=== PATIENT | female | born 1975 | race Caucasian/White ===

== ENCOUNTER 2020-04-07 10:22 | Outpatient (REF) | payer MEDICARE, MEDICAID, SELFPAY ==
[2020-04-07 12:16] LABS: Alanine Aminotransferase 14 U/L (0-31); Alkaline Phosphatase 103 U/L (39-117); Aspartate Amino Transferase 19 U/L (5-31); Bilirubin Direct < 0.2 mg/dL (0.0-0.5); Bilirubin Total 0.4 mg/dL (0.0-1.0); Cholesterol 191 mg/dL; HDL Cholesterol 51 mg/dL; LDL Cholesterol Calculated 124 mg/dl; Triglycerides 84 mg/dL
== END 2020-04-07 10:23 | disposition home or self-care (01) ==
LOC: HO.HMGCLDS 10:22
PROVIDERS: PCP Internal Medicine; Visit Provider Internal Medicine
DX: E78.9 Disorder of lipoprotein metabolism, unspecified (principal)
CPT/HCPCS: 36415; 80061; 80076

== ENCOUNTER 2020-12-02 10:09 | Outpatient (REF) | payer MEDICARE, MEDICAID, SELFPAY ==
[2020-12-02 12:03] LABS: Alanine Aminotransferase 17 U/L (0-31); Albumin Level 4.2 g/dL (3.5-5.0); Alkaline Phosphatase 100 U/L (39-117); Aspartate Amino Transferase 24 U/L (5-31); Bilirubin Direct < 0.2 mg/dL (0.0-0.5); Bilirubin Total 0.4 mg/dL (0.0-1.0); Cholesterol 230 mg/dL; HDL Cholesterol 53 mg/dL; LDL Cholesterol Calculated 145 mg/dl; Total Protein 7.2 g/dL (6.5-8.0); Triglycerides 164 mg/dL
== END 2020-12-02 10:10 | disposition home or self-care (01) ==
LOC: HO.HMGCLDS 10:09
PROVIDERS: PCP Internal Medicine; Visit Provider Internal Medicine
DX: E78.9 Disorder of lipoprotein metabolism, unspecified (principal); E66.09 Other obesity due to excess calories
CPT/HCPCS: 36415; 80061; 80076

== ENCOUNTER 2021-06-07 10:23 | Outpatient (REF) | payer MEDICARE, MEDICAID, SELFPAY ==
[2021-06-07 11:26] LABS: MANUAL DIFF FLAG NO
[2021-06-07 11:59] LABS: Basophils Percent Auto 0.2 % (0-2); Eosinophils Absolute Auto 0.2 X10*3/uL (0.0-0.4); Eosinophils Percent Auto 5.1 % (0-4); Hematocrit 38.1 % (37.0-47.0); Hemoglobin 12.3 g/dl (12.0-16.0); Imm Gran Abs Auto 0.01 X10*3/uL (0.00-0.03); Imm Gran Pct Auto 0.2 % (0.0-0.4); Lymphocytes Absolute Auto 1.5 X10*3/uL (1.2-4.9); Mean Corpuscular HGB Conc 32.3 g/dl (31.0-35.0); Mean Corpuscular Hemoglobin 33.2 pg (27.0-33.0); Mean Corpuscular Volume 102.7 fL (80.0-98.0); Mean Platelet Volume 9.2 fL (9.4-12.3); Monocytes Absolute Auto 0.2 X10*3/uL (0.1-1.2); Monocytes Percent Auto 5.1 % (2-11); Neutrophils Absolute Auto 2.4 x10*3/uL (2.0-8.3); Neutrophils Percent Auto 54.4 % (45-73); Platelet Count 168 X10*3/uL (160-400); Red Blood Count 3.71 X10*6/uL (4.20-5.50); Red Cell Distribution Width 13.3 % (11.0-16.0); White Blood Count 4.3 X10*3/uL (4.8-10.8)
[2021-06-07 12:04] LABS: Alanine Aminotransferase 14 U/L (0-31); Albumin Level 3.9 g/dL (3.5-5.0); Alkaline Phosphatase 95 U/L (39-117); Anion Gap 12 (12-20); Aspartate Amino Transferase 19 U/L (5-31); Bilirubin Total 0.6 mg/dL (0.0-1.0); Blood Urea Nitrogen 16 mg/dL (9-16); Carbon Dioxide 29 mmol/L (22-29); Chloride 103 mmol/L (96-108); Cholesterol 205 mg/dL; Estimated Glomerular Filt Rate > 60; Glucose Fasting 111 mg/dL (60-99); HDL Cholesterol 56 mg/dL; LDL Cholesterol Calculated 133 mg/dl; Potassium 4.1 mmol/L (3.3-5.1); Sodium 140 mmol/L (135-145); Total Protein 6.9 g/dL (6.5-8.0); Triglycerides 84 mg/dL
[2021-06-07 12:10] LABS: TSH reflex Free T4 1.02 uIU/mL (0.32-4.0)
== END 2021-06-07 10:24 | disposition home or self-care (01) ==
LOC: HO.HMGCLDS 10:23
PROVIDERS: Visit Provider Internal Medicine
DX: Z00.01 Encounter for general adult medical examination with abnormal findings (principal); E66.09 Other obesity due to excess calories; E78.9 Disorder of lipoprotein metabolism, unspecified; F81.9 Developmental disorder of scholastic skills, unspecified; R41.840 Attention and concentration deficit
CPT/HCPCS: 36415; 80053; 80061; 84443; 85025

== ENCOUNTER 2021-08-11 13:13 | Outpatient (REF) | payer MEDICARE, MEDICAID, SELFPAY ==
--- NOTE | ~2021-08-11 | MM_ITS ---
EXAMINATION: MM SCREENING DIGITAL BREAST TOMOSYNTHESIS, BILATERAL CLINICAL INFORMATION: Screening. Asymptomatic. Age 46. No prior breast imaging. No known family history breast cancer. The lifetime risk of breast cancer based on the Tyrer-Cuzick Model is 11%. COMPARISON: None (current study represents initial baseline exam). TECHNIQUE: Digital breast tomosynthesis is performed in both the craniocaudal and mediolateral oblique views along with computer-aided detection (CAD). Synthesized 2D images are generated from the tomosynthesis. Additional left CC and left MLO views are provided. FINDINGS: The breasts are heterogeneously dense, which may obscure small masses (ACR BI-RADS breast composition Category c). There is no significant mass or architectural abnormality. No abnormal calcifications. The axilla and skin contours are unremarkable. MM/MM tomosynthesis screening BI IMPRESSION: No mammographic evidence of malignancy. ASSESSMENT: BI-RADS 1: Negative RECOMMENDATION: Routine annual mammography screening. This patient's information was entered into a reminder system with a target due date for their next mammogram.
== END 2021-08-11 13:14 | disposition home or self-care (01) ==
LOC: HO.MAMMO 13:13
PROVIDERS: PCP Internal Medicine; Visit Provider Internal Medicine
DX: Z12.31 Encounter for screening mammogram for malignant neoplasm of breast (principal)
CPT/HCPCS: 77063; 77067

== ENCOUNTER → 2022-04-20 10:11 | Outpatient (BNVA) | payer MEDICARE, MEDICAID, SELFPAY | PROVIDERS: PCP Internal Medicine; Visit Provider Advanced Practice Midwife ==

== ENCOUNTER 2022-06-24 19:51 | Emergency (ER) | payer MEDICARE, MEDICAID, SELFPAY ==
--- NOTE | 2022-06-24 | ECG_ITS ---
Test Reason : SEIZURE Blood Pressure : / mmHG Vent. Rate : 076 BPM Atrial Rate : 076 BPM P-R Int : 120 ms QRS Dur : 084 ms QT Int : 432 ms P-R-T Axes : 045 062 057 degrees QTc Int : 486 ms Normal sinus rhythm T wave abnormality, consider anterior ischemia Abnormal ECG When compared with ECG of 24-APR-2016 15:00, T wave inversion more evident in Anterior leads Referred By: Generic ED Physician Electronically Signed By:Soren Matthew
--- NOTE | ~2022-06-24 | CT_ITS ---
EXAMINATION: CT HEAD WITHOUT CONTRAST CT CERVICAL SPINE WITHOUT CONTRAST CLINICAL INFORMATION: Trauma. Head injury. COMPARISON: None available. TECHNIQUE: Contiguous axial imaging was performed from the skull base to vertex without intravenous administration of contrast. Contiguous axial imaging was performed from the upper chest through the skull base without intravenous administration of contrast. Coronal and sagittal reformats were obtained at the acquisition workstation. This CT examination was performed using dose optimization techniques as appropriate, variously including the following: *Automated exposure control. *Adjustment of mA and/or kV according to patient size (this includes techniques or standardized protocols for targeted exams where dose is matched to indication/reason for exam; i.e. extremities or head). *Use of iterative reconstruction technique. DLP: 938 mGy-cm FINDINGS: Head: Moderately motion degraded exam. There is no evidence of acute intracranial hemorrhage or edematous territorial infarction. Monique-white matter differentiation is preserved. There is no abnormal attenuation within the brain parenchyma. The ventricles are normal in morphology and size. No evidence for obstructive hydrocephalus. No abnormal mass effect or midline shift. No extra-axial fluid collections. No acute soft tissue or osseous abnormalities. The mastoid air cells and visualized paranasal sinuses are clear. Cervical Spine: Moderately motion degraded exam. The atlantooccipital and atlantoaxial articulations remain well aligned. Reversal the normal cervical lordosis centered on C5-C6. Otherwise, there is anatomic alignment of the vertebral bodies and posterior elements. No evidence of acute fracture or subluxation. The vertebral body heights are maintained. Moderate degenerative disc disease at C6-C7 and C7-T1. Facet and uncovertebral joint arthropathy leads to osseous encroachment on the neural foramina from C4-T1. There is no prevertebral soft tissue swelling. The thyroid gland and remaining cervical soft tissues are within normal limits. The lung apices demonstrate no abnormalities. CT/CT cervical spine wo IV con IMPRESSION: 1. No evidence of acute intracranial hemorrhage or edematous territorial infarction. 2. No evidence of acute fracture or traumatic subluxation of the cervical spine. Moderate multilevel degenerative spondyloarthropathy of the cervical spine.
[2022-06-24 20:02] VITALS: BP 104/69; BP 110/72; PULSE 104; PULSE 88; RESP 16; O2SAT 98; BMI 35.6
--- NOTE | 2022-06-24 20:11 | PC.NURSE ---
Pt presents to ER via EMS. Pt was found at a advent dance after having a full body seizure for 5-7 minutes. Pt does not have a history of seizures. Mother at bedside stated pt may have hit her head, and pt did have an episode of vomiting following the seizure. EMS placed pt in a c-collar and placed an 18g IV in the left AC. Pt is A&Ox4, GCS 15. Pt does have an intellectual disability that causes some confusion and repetition of questions and phrases. Parents are at the bedside. Pt has been put under seizure precautions, seizure pads have been put on the bed. Pt bloodwork is being drawn at this time. Pt waiting for ED provider at this time.
[2022-06-24 20:28] VITALS: BP 104/69; PULSE 104; RESP 16; O2SAT 98
[2022-06-24 20:40] LABS: MANUAL DIFF FLAG NO
[2022-06-24 20:41] LABS: Basophils Percent Auto 0.5 % (0-2); Eosinophils Absolute Auto 0.5 X10*3/uL (0.0-0.4); Eosinophils Percent Auto 8.2 % (0-4); Hematocrit 33.1 % (37.0-47.0); Hemoglobin 10.4 g/dl (12.0-16.0); Imm Gran Abs Auto 0.05 X10*3/uL (0.00-0.03); Imm Gran Pct Auto 0.8 % (0.0-0.4); Lymphocytes Absolute Auto 2.2 X10*3/uL (1.2-4.9); Lymphocytes Percent Auto 34.8 % (20-40); Mean Corpuscular HGB Conc 31.4 g/dl (31.0-35.0); Mean Corpuscular Hemoglobin 30.9 pg (27.0-33.0); Mean Corpuscular Volume 98.2 fL (80.0-98.0); Mean Platelet Volume 8.6 fL (9.4-12.3); Monocytes Absolute Auto 0.4 X10*3/uL (0.1-1.2); Monocytes Percent Auto 5.6 % (2-11); Neutrophils Absolute Auto 3.1 x10*3/uL (2.0-8.3); Neutrophils Percent Auto 50.1 % (45-73); Platelet Count 210 X10*3/uL (160-400); Red Blood Count 3.37 X10*6/uL (4.20-5.50); Red Cell Distribution Width 14.9 % (11.0-16.0); White Blood Count 6.2 X10*3/uL (4.8-10.8)
[2022-06-24 20:55] LABS: Glucose, Whole Blood 107 mg/dL (60-115)
[2022-06-24 20:56] LABS: Alanine Aminotransferase 15 U/L (0-31); Albumin Level 3.6 g/dL (3.5-5.0); Alkaline Phosphatase 65 U/L (39-117); Anion Gap 12 (12-20); Aspartate Amino Transferase 21 U/L (5-31); Bilirubin Total 0.2 mg/dL (0.0-1.0); Blood Urea Nitrogen 17 mg/dL (9-16); Calcium 8.6 mg/dL (8.4-10.2); Carbon Dioxide 26 mmol/L (22-29); Chloride 107 mmol/L (96-108); Creatinine Clr Calc Pharmacy 100.5; Estimated Glomerular Filt Rate > 60; Glucose Random 121 mg/dL (60-115); Potassium 3.8 mmol/L (3.3-5.1); Sodium 141 mmol/L (135-145); Total Protein 6.6 g/dL (6.5-8.0)
--- NOTE | 2022-06-24 21:18 | PC.NURSE ---
Assisted pt with the bedpan. Urine was collected and sent. Pt had a solid bowel movement. Pt has been able to roll and sit up in the bed on her own.
[2022-06-24 21:25] LABS: Appearance Urine Clear; Color Urine Yellow; Glucose Urine UA Negative (Negative); Leukocyte Esterase Urine Moderate (2+) (Negative); Nitrite Urine Negative (Negative); PH 6.5 (5.0-9.0); UMIC TRIGGER UACC YES; Urine Blood Negative (Negative); Urine Ketones Trace mg/dL (Negative); Urine Protein 30 (1+) mg/dL (Neg-Trace)
--- NOTE | 2022-06-24 21:29 | ED.SEIZURE ---
HPI - Seizure General Chief Complaint: Seizure Stated Complaint: seizure Time Seen by Provider: 06/24/22 21:00 History of Present Illness HPI Narrative: Patient 47-year-old female with a hypertension pre diabetes intellectual disability. Presented today patient was at a function had a full-blown shaking of the upper and lower extremity patient I will back lasted for less than 5 minute subsequently patient was very lethargic. Gradually over few minutes patient mental status improved. Sent to the ED for further evaluation. Baseline patient does not drive. There is been no recreational drugs. Has no significant past medical history. No fever no chills. No focal weakness. Seizure History: No Place: [facility] Related Data Home Medications Medication Instructions Recorded Confirmed fluoxetine 20 mg capsule 20 mg PO DAILY 03/25/20 11/24/21 lorazepam 0.5 mg tablet 0.5 mg PO TID PRN 03/25/20 11/24/21 quetiapine 100 mg tablet mg PO Q OTHER DAY PRN 03/25/20 11/24/21 Previous Rx's Medication Instructions Recorded simvastatin 20 mg tablet 20 mg PO BEDTIME #90 tabs 12/24/21 sulfamethoxazole 800 1 tab PO BID UTI #6 tabs 06/24/22 mg-trimethoprim 160 mg tablet (Bactrim DS) Allergies Allergy/AdvReac Type Severity Reaction Status Date / Time No Known Allergies Allergy Verified 04/20/22 10:20 Review of Systems Review of Systems: No chest pain or shortness of breath no diaphoresis Yes all other systems are reviewed and are negative PMFSH Past Medical History Medical History High cholesterol History of anxiety Intellectual disability Surgical History History of total hysterectomy Family History Family History Father History of hip replacement Mother Heart attack Sister No problems noted. Social History Social History Household Members Other:: father Housing: House Alcohol intake: never Patient Tobacco Use Status: Never used Tobacco Smoked in Last 30 Days: No e-Cigarette/Vaping Use: Never Used Use of substances other than those prescribed or required for medical reasons: No Advance Directives: No Advance Directives Information Provided: Yes Patient : No Current occupational status: disabled Cognitive needs: Yes Hearing needs: No Vision needs: No Physical Exam Vital Signs: Vital Signs: Last Vital Signs Temp 98.4 F 06/24/22 21:58 Pulse 84 06/24/22 21:58 Resp 16 06/24/22 21:58 BP 119/56 L 06/24/22 21:58 Pulse Ox 98 06/24/22 21:58 O2 Del Method Room Air 06/24/22 21:58 BMI result Body Mass Index 35.6 Appearance: Alert. Oriented X3. No acute distress. Eyes: Pupils equal, round and reactive to light. ENT: Pharynx normal. Neck: Normal inspection. Neck supple. No lymph nodes noted. No crepitus CVS: Normal heart rate and rhythm. Pulses normal. Normal S1 and S2 Respiratory: No respiratory distress. Breath sounds normal. No Wheezing. No rales Abdomen: Soft and nontender. No rigidity. No distention. good BS x4 Skin: Skin warm and dry. Normal skin color. Normal skin turgor. Extremities: No lower extremity edema. Neurovascular intact to all extremities. No Lacerations. No Rash Neuro: Oriented X 3. No motor deficit. No sensory deficit. Moving all extermities. No slurred speech Medical Decision Making Medical Decision Making [facility] Narrative: Patient presents today with having new onset seizure. CT scan of the head and C-spine were both grossly negative for any acute evidence of fracture. No malalignment. No bleed. No mass. My interpretation of patient's EKG shows a sinus rhythm heart rate was 75 NH QRS QTC within normal limits in the anterior leads there were T-wave inversions noted, these findings were old. Her test was negative. Her electrolytes are unremarkable. Patient's urine showed 2+ local site esterase with greater than 50 wbc's. Question UTI. Will go ahead and start patient on antibiotics. Close follow-up on an outpatient basis. Seizure precautions. Elected not to start medication as patient had a first-time seizure home. Patient to follow-up with Neurology on an outpatient basis. Differential Diagnosis Differential Diagnoses: The differential diagnosis associated with the presentation includes Seizure, UTI, intracranial bleed, intracranial mass, fracture Admission/Observation Consideration of admission/observation: Escalation of care including admission/observation considered Lab Data [facility] Lab Attestation statement: I reviewed the patient's lab results. 06/24/22 20:33 06/24/22 11:55 Labs: Lab Results 06/24/22 06/24/22 06/24/22 Range/Units 11:55 20:33 20:47 WBC 6.2 (4.8-10.8) X10*3/uL RBC 3.37 L (4.20-5.50) X10*6/uL Hgb 10.4 L (12.0-16.0) g/dl Hct 33.1 L (37.0-47.0) % MCV 98.2 H (80.0-98.0) fL MCH 30.9 (27.0-33.0) pg MCHC 31.4 (31.0-35.0) g/dl RDW 14.9 (11.0-16.0) % Plt Count 210 (160-400) X10*3/uL MPV 8.6 L (9.4-12.3) fL Immature Gran % (Auto) 0.8 H (0.0-0.4) % Neut % (Auto) 50.1 (45-73) % Lymph % (Auto) 34.8 (20-40) % [place] % (Auto) 5.6 (2-11) % Eos % (Auto) 8.2 H (0-4) % Baso % (Auto) 0.5 (0-2) % Lymph # (Auto) 2.2 (1.2-4.9) X10*3/uL [place] # (Auto) 0.4 (0.1-1.2) X10*3/uL Eos # (Auto) 0.5 H (0.0-0.4) X10*3/uL Baso # (Auto) 0.0 (0.0-0.2) X10*3/uL Abs Immat Gran (auto) 0.05 H (0.00-0.03) X10*3/uL Absolute Neuts (auto) 3.1 (2.0-8.3) x10*3/uL Absolute Nucleated RBC 0.000 (0.0-0.012) X10*3/uL Nucleated RBC % (auto) 0.0 (0.0-0.2) /100WBC Sodium 141 (135-145) mmol/L Potassium 3.8 (3.3-5.1) mmol/L Chloride 107 (96-108) mmol/L Carbon Dioxide 26 (22-29) mmol/L Anion Gap 12 (12-20) BUN 17 H (9-16) mg/dL Creatinine 0.77 (0.5-1.4) mg/dL Estim Creat Clear Calc 100.5 Estimated GFR > 60 POC Glucose 107 (60-115) mg/dL Random Glucose 121 H (60-115) mg/dL Calcium 8.6 (8.4-10.2) mg/dL Total Bilirubin 0.2 (0.0-1.0) mg/dL AST 21 (5-31) U/L ALT 15 (0-31) U/L Alkaline Phosphatase 65 (39-117) U/L Total Protein 6.6 (6.5-8.0) g/dL Albumin 3.6 (3.5-5.0) g/dL Beta HCG, Quant Cancelled Urine Color Urine Appearance Urine pH (5.0-9.0) Ur Specific [place] (1.005-1.025) Urine Protein (Neg-Trace) mg/dL Urine Glucose (UA) (Negative) mg/dL Urine Ketones (Negative) mg/dL Urine Blood (Negative) Urine Nitrite (Negative) Ur Leukocyte Esterase (Negative) Urine RBC (0-2) /HPF Urine WBC (0-5) /HPF Ur Squamous Epith Cells (0-2) /HPF Urine Bacteria (None Seen) Hyaline Casts (0-2) /LPF Urine Test (NEGATIVE) 06/24/22 06/24/22 Range/Units 21:06 21:06 WBC (4.8-10.8) X10*3/uL RBC (4.20-5.50) X10*6/uL Hgb (12.0-16.0) g/dl Hct (37.0-47.0) % MCV (80.0-98.0) fL MCH (27.0-33.0) pg MCHC (31.0-35.0) g/dl RDW (11.0-16.0) % Plt Count (160-400) X10*3/uL MPV (9.4-12.3) fL Immature Gran % (Auto) (0.0-0.4) % Neut % (Auto) (45-73) % Lymph % (Auto) (20-40) % [place] % (Auto) (2-11) % Eos % (Auto) (0-4) % Baso % (Auto) (0-2) % Lymph # (Auto) (1.2-4.9) X10*3/uL [place] # (Auto) (0.1-1.2) X10*3/uL Eos # (Auto) (0.0-0.4) X10*3/uL Baso # (Auto) (0.0-0.2) X10*3/uL Abs Immat Gran (auto) (0.00-0.03) X10*3/uL Absolute Neuts (auto) (2.0-8.3) x10*3/uL Absolute Nucleated RBC (0.0-0.012) X10*3/uL Nucleated RBC % (auto) (0.0-0.2) /100WBC Sodium (135-145) mmol/L Potassium (3.3-5.1) mmol/L Chloride (96-108) mmol/L Carbon Dioxide (22-29) mmol/L Anion Gap (12-20) BUN (9-16) mg/dL Creatinine (0.5-1.4) mg/dL Estim Creat Clear Calc Estimated GFR POC Glucose (60-115) mg/dL Random Glucose (60-115) mg/dL Calcium (8.4-10.2) mg/dL Total Bilirubin (0.0-1.0) mg/dL AST (5-31) U/L ALT (0-31) U/L Alkaline Phosphatase (39-117) U/L Total Protein (6.5-8.0) g/dL Albumin (3.5-5.0) g/dL Beta HCG, Quant Urine Color Yellow Urine Appearance Clear Urine pH 6.5 (5.0-9.0) Ur Specific [place] 1.020 (1.005-1.025) Urine Protein 30 (1+) H (Neg-Trace) mg/dL Urine Glucose (UA) Negative (Negative) mg/dL Urine Ketones Trace (Negative) mg/dL Urine Blood Negative (Negative) Urine Nitrite Negative (Negative) Ur Leukocyte Esterase Moderate (2+) H (Negative) Urine RBC 0-2 (0-2) /HPF Urine WBC >50 H (0-5) /HPF Ur Squamous Epith Cells 3-5 (0-2) /HPF Urine Bacteria None Seen (None Seen) Hyaline Casts 0-2 (0-2) /LPF Urine Test NEGATIVE (NEGATIVE) Independent Interpretation I performed an independent interpretation of an: EKG Interpretation: Sinus rhythm heart rate was 75 NH QRS QT within normal limits there is T-wave inversions over the anterior septal leads. Radiology Impression Discussion of test interpretation with radiology: I have reviewed the radiologist's reading. Independent Historian Clinical information obtained from an independent historian. History obtained from or confirmed by: Parent Discharge Plan Discharge Clinical Impression: Epileptic seizure, Urinary tract infection Patient Disposition: Home, Self-Care Instructions: New-Onset Seizure in Adults (ED) Additional Instructions: No swimming. No activities that will put you in danger if he have a seizure that time. Prescriptions: New sulfamethoxazole-trimethoprim [Bactrim DS] 800-160 mg tablet 1 tab PO BID Qty: 6 0RF No Action simvastatin 20 mg tablet 20 mg PO BEDTIME Qty: 90 0RF quetiapine 100 mg tablet PO Q OTHER DAY PRN fluoxetine 20 mg capsule 20 mg PO DAILY lorazepam 0.5 mg tablet 0.5 mg PO TID PRN Referrals: Clary Schroeder MD [Physician] - 06/27/22 Paige Gonsalez MD [Primary Care Provider] -
[2022-06-24 21:30] LABS: Bacteria Urine None Seen (None Seen); Hyaline Casts Urine 0-2 /LPF (0-2); RBC Urine 0-2 /HPF (0-2); UACC Culture Trigger YES; WBC Urine >50 /HPF (0-5)
--- NOTE | 2022-06-24 21:40 | PC.NURSE ---
Assisted pt with bedpan. Pt had a solid bowel movement.
[2022-06-24 21:46] LABS: Urine Pregnancy NEGATIVE (NEGATIVE)
[2022-06-24 21:47] LABS: UPreg QC Valid YES
--- NOTE | 2022-06-24 21:49 | PC.NURSE ---
Assisted pt with bedpan, she had one formed bowel movement. MD aware of frequent bowel movements.
[2022-06-24 21:58] VITALS: BP 119/56; PULSE 84; RESP 16; TEMP 36.9; O2SAT 98
--- NOTE | 2022-06-24 22:08 | MHC.EDTECH ---
PATIENT WAS ASSISTED UNTO BED GARCIA ,PATIENT HAD LARGE BOWEL MOVEMENT ,CARE GIVEN ,PATIENT FATHER AT BEDSIDE .
[2022-06-24 23:41] VITALS: BP 116/58; PULSE 77; RESP 15; TEMP 37.1; O2SAT 99
--- NOTE | 2022-06-24 23:42 | MHC.EDTECH ---
PATIENT VITALS SIGN TAKEN ,MD DURBIN TOOK OFF PATIENT COLLAR ,PATIENT WATCHING TELEVISION .
--- NOTE | 2022-06-24 23:59 | MHC.EDTECH ---
PATIENT WAS ASSISTED TO GET DRESS ,PATIENT AUNT IS HERE TO TAKE PATIENT HOME .
--- NOTE | 2022-06-25 00:15 | PC.NURSE ---
Reviewed discharge instructions with pt and family, pt verbalized understanding notified HTEAL Lazo.
[2022-06-25] MEDS: Acetaminophen 325 MG TABLET 650 MG PO (00:48)
[2022-06-25] MEDS: Sulfamethox/Trimeth 800/160 TABLET 1 TAB PO (00:48)
== END 2022-06-25 00:21 | disposition home or self-care (01) ==
PROVIDERS: Emergency Provider Emergency Medicine Emergency Medical Services; PCP Internal Medicine
DX: G40.909 Epilepsy, unspecified, not intractable, without status epilepticus (principal); N39.0 Urinary tract infection, site not specified; R51.9 Headache, unspecified; M54.2 Cervicalgia; Z79.899 Other long term (current) drug therapy
CPT/HCPCS: 36415; 70450; 72125; 80053; 81001; 81025; 82947; 85025; 87086; 87147; 93005; 99284; 99285

== ENCOUNTER 2022-08-12 11:48 | Outpatient (REF) | payer MEDICARE, MEDICAID, SELFPAY ==
[2022-08-17 11:48] LABS: Vitamin D 25-OH, D2 <4 ng/mL; Vitamin D 25-OH, D3 27 ng/mL; Vitamin D 25-OH, Total 27 ng/mL (30-100)
== END 2022-08-12 11:49 | disposition home or self-care (01) ==
LOC: HO.HMGCX 11:48
PROVIDERS: PCP Internal Medicine; Visit Provider Internal Medicine
DX: E78.9 Disorder of lipoprotein metabolism, unspecified (principal); D64.9 Anemia, unspecified; K59.00 Constipation, unspecified; M25.562 Pain in left knee
CPT/HCPCS: 36415; 73564; 80053; 82306; 82607; 82728; 82746; 83540; 85025

== ENCOUNTER 2022-08-15 13:14 | Outpatient (REF) | payer MEDICARE, MEDICAID, SELFPAY ==
--- NOTE | ~2022-08-15 | MM_ITS ---
EXAMINATION: MM SCREENING DIGITAL BREAST TOMOSYNTHESIS, BILATERAL CLINICAL INFORMATION: Screening. Asymptomatic. The lifetime risk of breast cancer based on the Tyrer-Cuzick Model is 11%. COMPARISON: Mammography: This study is compared with prior exams dating back to 2021. TECHNIQUE: Digital breast tomosynthesis is performed in both the craniocaudal and mediolateral oblique views along with computer-aided detection (CAD). Synthesized 2D images are generated from the tomosynthesis. FINDINGS: The breasts are heterogeneously dense, which may obscure small masses (ACR BI-RADS breast composition Category c). There is an asymmetry in the deep third left breast at the lower outer quadrant. Additional mammographic imaging is advised. This should include spot compression in the CC projection, X CCL and full lateral 2-D and kezia synthesis imaging. In the right breast, there are no significant masses, abnormal calcifications, or other abnormalities. MM/MM tomosynthesis screening BI IMPRESSION: Asymmetry of the left breast warrants additional mammographic imaging. No mammographic signs of malignancy right breast. ASSESSMENT: BI-RADS BI-RADS 0 - Incomplete: Needs additional Imaging. RECOMMENDATION: 1. Additional views of the left breast 2. Targeted ultrasound if warranted after review of the additional views. 3. Radiology department staff will contact the patient for additional imaging. Additional Imaging required This examination should not preclude the clinical evaluation of a suspicious palpable abnormality. This patient's information was entered into a reminder system with a target due date for their next mammogram.
== END 2022-08-15 13:15 | disposition home or self-care (01) ==
LOC: HO.MAMMO 13:14
PROVIDERS: PCP Internal Medicine; Visit Provider Internal Medicine
DX: Z12.31 Encounter for screening mammogram for malignant neoplasm of breast (principal)
CPT/HCPCS: 77063; 77067

== ENCOUNTER → 2022-08-15 13:30 | Outpatient (BNV) | payer MEDICARE, MEDICAID, SELFPAY | PROVIDERS: PCP Internal Medicine; Visit Provider Radiology Diagnostic Radiology | DX: Z12.31 Encounter for screening mammogram for malignant neoplasm of breast (principal) | CPT/HCPCS: 77063; 77067 ==

== ENCOUNTER 2022-09-21 08:12 | Outpatient (REF) | payer MEDICARE, MEDICAID, SELFPAY ==
--- NOTE | ~2022-09-21 | XR_ITS ---
EXAMINATION: XR KNEE AP STANDING X-ray left knee CLINICAL INFORMATION: Knee pain COMPARISON: X-ray 08/22/2022 TECHNIQUE: AP bilateral standing view of the knees was obtained. Left knee sunrise one view. FINDINGS: Left knee: Anatomic alignment. Joint space is maintained. No evidence of acute fracture or dislocation. No abnormal soft tissue calcification. Right knee: Anatomic alignment. Medial and lateral compartment joint space is maintained. XR/XR knee standing BI IMPRESSION: Left knee: No radiographic evidence of acute osseous abnormality.
--- NOTE | ~2022-09-21 | XR_ITS ---
EXAMINATION: XR KNEE AP STANDING X-ray left knee CLINICAL INFORMATION: Knee pain COMPARISON: X-ray 08/22/2022 TECHNIQUE: AP bilateral standing view of the knees was obtained. Left knee sunrise one view. FINDINGS: Left knee: Anatomic alignment. Joint space is maintained. No evidence of acute fracture or dislocation. No abnormal soft tissue calcification. Right knee: Anatomic alignment. Medial and lateral compartment joint space is maintained. XR/XR knee LT 1V IMPRESSION: Left knee: No radiographic evidence of acute osseous abnormality.
== END 2022-09-21 08:13 | disposition home or self-care (01) ==
LOC: HO.HOSX 08:12
PROVIDERS: Visit Provider Physician Assistant
DX: Z13.89 Encounter for screening for other disorder (principal)
CPT/HCPCS: 73560; 73565

== ENCOUNTER 2022-09-21 10:51 | Outpatient (AMB) | payer MEDICARE, MEDICAID, SELFPAY ==
[2022-09-21 11:08] VITALS: BMI 33.6
--- NOTE | 2022-09-21 11:08 | A.OFFVIS_ITS ---
Intake Vital Signs 09/21/22 11:08 Height 5 ft 4 in Weight 196 lb BMI 33.6 Intake Visit Reasons: [employer]- Left knee pain Intake Note: Stephy a 47 year old female who presents today with a worker as a new patient for an evaluation of left knee pain. Patient reports pain has been present for a while, her worker states she has not complained about pain until her recent PCP visit. Pain is located at the anterior aspect of knee and will have numbness and tingling. Denies injury but states out of frustration she will hit her knee. No previous tx. Allergies No Known Allergies Allergy (Verified 09/21/22 11:13) HPI [employer]- Left knee pain HPI Details 47-year-old female who presents to the office today with a worker for evaluation of left knee pain. Her worker states she did not experienced pain until her recent PCP visit. She currently has pain, numbness and tingling in the anterior aspect of her knee which is aggravated with stair use. She denies her knee giving out. She has not had any treatment or recent injury but she does hit her knee out of frustration. [facility] Medical History High cholesterol History of anxiety Intellectual disability Surgical History History of total hysterectomy Family History Father History of hip replacement Mother Heart attack Sister No problems noted. Social History Household Members Other:: father Housing: House Alcohol intake: never Patient Tobacco Use Status: Never used Tobacco e-Cigarette/Vaping Use: Never Used Current occupational status: disabled Cognitive needs: Yes Hearing needs: No Vision needs: No Review of Systems Const All systems reviewed & are unremarkable except as noted in HPI and below Physical Exam Vital Signs: BMI result Body Mass Index 33.6 Const General: cooperative, healthy appearing, comfortable, no acute distress, well developed and alert Orientation/consciousness: patient oriented x3 HEENT Head: Yes normal to inspection, Yes normocephalic and Yes atraumatic Eyes General: appearance normal, both eyes and all related structures Resp Effort & Inspection: normal respiratory effort and able to speak in complete sentences Cardio Rate: regular rate Peripheral pulses: Peripheral pulses 2+ throughout GI Palpation (GI): Soft to palpation Skin Lesions: no lesions Rashes: no rashes Neuro General: patient oriented x3 Extrem Other: Left knee: Skin intact, no erythema or joint effusion. Lateral retropatellar tenderness present. Full ROM with crepitus. Negative Aurora?s. No ligamentous laxity. NVI. Assessment & Plan Assessment & Plan (1) Chondromalacia of left patellofemoral joint: Code(s): M22.42 - Chondromalacia patellae, left knee Plan We discussed options which include PT, NSAIDs and injections. The patient will defer on the injection today and proceed with PT and NSAIDs. If symptoms persist, the patient will contact me for an injection, otherwise, PRN. Orders: Orders XR knee LT 1V Today M25.562 - Pain in left knee XR knee standing BI Today M25.561 - Pain in right knee, M25.562 - Pain in left knee PT Evaluation and Treatment Today M22.42 - Chondromalacia patellae, left knee Patient Instructions: Scribed for Srinivas Nunez PA-C, by Reji Boyd forensic medical examiner, on 09/21/2022 at 11:00 AM EST. I, Srinivas Nunez PA-C, have personally reviewed and agree with the information entered by the scribe. Coding Level of Care Code New Pt Level 3 (93542) Diagnoses Chondromalacia of left patellofemoral joint M22.42
== END 2022-09-21 11:34 | disposition home or self-care (01) ==
PROVIDERS: PCP Internal Medicine; Visit Provider Physician Assistant
DX: M22.42 Chondromalacia patellae, left knee (principal)
CPT/HCPCS: 99203

== ENCOUNTER 2022-09-21 13:18 | Outpatient (REF) | payer MEDICARE, MEDICAID, SELFPAY ==
--- NOTE | ~2022-09-21 | US_ITS ---
EXAMINATION: MM DIAGNOSTIC DIGITAL BREAST TOMOSYNTHESIS, LEFT US BREAST LIMITED, LEFT MAMMOGRAPHY: CLINICAL INFORMATION: Callback to evaluate asymmetry in the deep third left breast at the lower outer quadrant seen on screening exam. The lifetime risk of breast cancer based on the Tyrer-Cuzick Model is 11%. COMPARISON: Mammography: Screening mammography 08/15/2022. 08/11/2021. TECHNIQUE: Digital left breast tomosynthesis is performed in both the craniocaudal and mediolateral oblique views along with computer-aided detection (CAD). Synthesized 2D images are generated from the tomosynthesis. In addition, 3-D left CC spot compression view was performed, as well as a 3-D left mediolateral view, and 3-D left exaggerated CC view. FINDINGS: The breasts are heterogeneously dense, which may obscure small masses (ACR BI-RADS breast composition Category c). In the left breast, in the region of the posterior asymmetry in the left breast lower outer quadrant, there is no persistent mammographic abnormality. Findings were consistent with summation artifact of normal superimposed breast tissue. In the 12:00 axis of the left breast, middle one third depth, seen only on the spot CC compression and X CCL views is a rounded 5 mm mass, which will be evaluated by ultrasound. No correlate seen on the left mediolateral view. ULTRASOUND: CLINICAL INFORMATION: Evaluate 5 mm rounded mass 12:00 axis left breast mid one third. COMPARISON: Left mammography dated same day. TECHNIQUE: Targeted sonographic evaluation was performed using a high frequency linear transducer. Selected archived documentation. FINDINGS: LEFT BREAST: Within the left breast at the 12:00 axis, approximately 5 cm from the nipple, there is a rounded mass or dirty cyst measuring approximately 5 x 4 x 4 mm, without internal color Doppler signal, and with poor through transmission. This is located deep within the dense fibroglandular tissue. This is felt to be most likely a dirty cyst , and is probably benign. Six-month interval follow-up targeted left breast ultrasound recommended to ensure stability. US/US breast LT limited mamm only IMPRESSION: Probably benign findings left breast as detailed. Six-month interval follow-up targeted left breast ultrasound recommended. OVERALL ASSESSMENT: Mammography: BI-RADS 3 - Probably benign finding(s) - 6 month follow-up suggested Ultrasound: BI-RADS 3 - Probably benign finding(s) - 6 month follow-up suggested RECOMMENDATION: 6 Month F/U This patient's information was entered into a reminder system with a target due date for their next mammogram.
== END 2022-09-21 13:19 | disposition home or self-care (01) ==
LOC: HO.MAMMO 13:18
PROVIDERS: PCP Internal Medicine; Visit Provider Internal Medicine
DX: N64.89 Other specified disorders of breast (principal); M25.561 Pain in right knee; M25.562 Pain in left knee; M22.42 Chondromalacia patellae, left knee
CPT/HCPCS: 73560; 73565; 76642; 77061; 77065; 99202

== ENCOUNTER → 2022-09-21 13:30 | Outpatient (BNV) | payer MEDICARE, MEDICAID, SELFPAY | PROVIDERS: PCP Internal Medicine; Visit Provider Radiology Diagnostic Radiology | DX: N64.89 Other specified disorders of breast (principal) | CPT/HCPCS: 76642; 77061; 77065; G0279 ==

== ENCOUNTER 2022-12-09 10:26 | Outpatient (AMB) | payer MEDICARE, MEDICAID, SELFPAY ==
[2022-12-09 10:28] VITALS: BP 110/64; PULSE 95; O2SAT 97; BMI 33.2
--- NOTE | 2022-12-09 10:28 | A.OFFPC_ITS ---
Vital Signs 12/09/22 10:28 Height 5 ft 4 in Weight 193 lb 8 oz BMI 33.2 BP 110/64 Blood Pressure Location Rt brachial Position Sitting Pulse 95 Pulse Source Pulse Oximeter Pulse Oximetry (%) 97 Oxygen Delivery Method Room Air Intake Visit Reasons: Annual PE Allergies No Known Allergies Allergy (Verified 12/09/22 10:28) Medication List - Last Reconciled 12/09/22 by Paige Gonsalez MD fluoxetine 20 mg PO DAILY lorazepam 0.5 mg PO TID PRN quetiapine mg PO Q OTHER DAY PRN sennosides-docusate sodium 8.6-50 mg (Senokot-S) 1 tab-cap PO BEDTIME 90 days simvastatin 20 mg PO BEDTIME sulfamethoxazole-trimethoprim 800-160 mg (Bactrim DS) 1 tab PO BID Tobacco use date assessed: 12/09/22 Dental Screening Dental Screen Date: 12/09/22 Did you have a dental visit in the last 12 months?: Yes Did you have a dental problem in the last 6 months where you did not have access to dental care?: No Was dental information given to patient?: Patient has dentist HPI Annual PE HPI Details Patient is 47-year-old female with intellectual disability came in today for physical examination Patient is due for labs, she had labs done in August she is slightly anemic She is also taking medication for high cholesterol, 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 Patient is a establish with OBGYN, breast exam and Pap smears are through them Mammogram is up-to-date BMI is elevated at 33.2 but she has managed to lose couple of lb since seen last Vital signs are stable Constipation is stable [facility] Medical History (Updated 12/09/22 @ 10:57 by Paige Gonsalez MD) Intellectual disability History of anxiety High cholesterol Surgical History History of total hysterectomy Family History Father History of hip replacement Mother Heart attack Sister No problems noted. Social History Household Members Other:: father Housing: House Alcohol intake: never Patient Tobacco Use Status: Never used Tobacco e-Cigarette/Vaping Use: Never Used Current occupational status: disabled Cognitive needs: Yes Hearing needs: No Vision needs: No Questionnaire PHQ-9 Over the last 2 weeks, how often have you been bothered by any of the following problems? 1. Little interest or pleasure in doing things: not at all 2. Feeling down, depressed, or hopeless: not at all 3. Trouble falling or staying asleep, or sleeping too much: more than half the days 4. Feeling tired or having little energy: more than half the days 5. Poor appetite or overeating: not at all 6. Feeling bad about yourself - or that you are a failure or have let yourself or your family down: not at all 7. Trouble concentrating on things, such as reading the newspaper or watching television: not at all 8. Moving or speaking so slowly that other people could have noticed. Or the opposite - being so fidgety or restless that you have been moving around a lot more than usual: not at all 9. Thoughts that you would be better off or of hurting yourself in some way: not at all Total score: 4 Depression Screening Interpretation: Negative Depression Screening Done: Yes 66166 - PHQ-9 Billing: Yes Source: Developed by Drs. Yusef Hoffmann, Darby Hernandez, Robin Gandhi and colleagues, with an educational sukumar from [employer]. Thrive Questionnaire Date Thrive assessed: 12/09/22 I am a: Parent/Caregiver What is your living situation today?: I have a steady place to live Within the past 12 months, did the food you bought not last and you didn't have the money to get more?: Never true Within the past 12 months, did you worry whether your food would run out before you got money to buy more?: Never true Do you have trouble paying for medicines?: No Do you have trouble getting transportation to medical appointments?: No Do you have trouble paying your heating and electricity bill?: No Do you have trouble taking care of your child, family member or friend?: No Do you have trouble with day-to-day activities such as bathing, preparing meals, shopping, managing finances, etc.?: No Are you currently unemployed and looking for a job?: No Are you interested in more education?: No Please select the resources that you would like help with: None Currently or been in a relationship where the following occur: no concerns reported MARIANNE-7 AMB Questionnaire MARIANNE-7 Date MARIANNE - 7 assessed: 12/09/22 Feeling nervous, anxious, or on edge: 2 = More than half the days Not being able to stop or control worryin = Not at all Worrying too much about different things: 0 = Not at all Trouble relaxin = Several days Being so restless that it is hard to sit still: 0 = Not at all Becoming easily annoyed or irritable: 0 = Not at all Feeling afraid as if something awful might happen: 1 = Several days Total MARIANNE-7 score (0-4 normal; 5-9 mild; 10-14 moderate; 15-21 severe): 4 Source: Developed by Drs. Yusef Hoffmann, Darby Hernandez, Robin Gandhi and colleagues, with an educational sukumar from [employer]. MARIANNE-7 Assessment Billing MARIANNE-7 Assessment Tool: MARIANNE-7 Assessment [id number] Review of Systems Const Denies chills, Denies fever(s) and Denies headache(s) Eyes Denies blurry vision ENT Denies headache(s), Denies nasal discharge, Denies nasal obstruction, Denies odynophagia and Denies sinus pain Card Denies chest pain at rest and Denies chest pain with activity Resp Denies cough and Denies hemoptysis GI Denies diarrhea, Denies odynophagia, Denies vomiting and Denies hematemesis Reports as per HPI Musc Denies abnormal gait Skin/Breast Reports as per HPI Neuro Denies Neuro-related abnormal movements, Denies Abnormal speech present, Denies abnormal gait, Denies headache(s) and Denies Sensory deficit (Neuro) Psych Denies mood swings and Denies paranoia Endo Reports as per HPI Saravanan/Lymph Reports as per HPI Aller/Immun Reports as per HPI Physical exam (Primary Care) Vital Signs: Last Vital Signs Pulse 95 12/09/22 10:28 BP 110/64 12/09/22 10:28 Pulse Ox 97 12/09/22 10:28 Oxygen Delivery Method Room Air 12/09/22 10:28 BMI result Body Mass Index 33.2 Tobacco/Smoking Status: Tobacco use Status Tobacco use date assessed 12/09/22 12/09/22 10:35 Patient Tobacco Use Status Never used Tobacco 12/09/22 10:35 e-Cigarette/Vaping Use Never Used 12/09/22 10:35 PHQ-9: PHQ-9 Score PHQ-9: Total score 4 12/09/22 10:48 Depression Screening Interpretation: Negative Thrive Assessment: Date of Thrive Assessment Date Thrive assessed 12/09/22 12/09/22 10:48 Currently or been in a relationship where the following occur: no concerns reported Const General: cooperative, comfortable and no acute distress Orientation/consciousness: patient oriented x3 HENMT Head: Yes normocephalic and Yes atraumatic Eyes General: appearance normal, both eyes and all related structures Pupils: Equal, round and reactive pupils present EOM: EOMs intact bilaterally Neck Neck: Yes supple and No lymphadenopathy Thyroid: Thyroid normal Lymphatic: no lymphadenopathy noted Resp Effort & Inspection: normal respiratory effort and able to speak in complete sentences Auscultation: clear to auscultation bilaterally Cardio Heart sounds: S1 normal heart sound present and S2 normal heart sound present GI Palpation (GI): Soft to palpation and nontender Auscultation: normal bowel sounds General: Yes no CVA tenderness Back/Spine/Pelvis Back: no CVA tenderness Skin General skin exam: elasticity normal and turgor normal Neuro General: patient oriented x3 and gait normal Cranial nerves: Yes Equal, round and reactive pupils present Speech: No Abnormal speech present Sensory Exam: No Sensory deficit (Neuro) Coordination: Romberg test negative Extrem General: Yes normal exam except as noted and No edema Office Procedures Flu Questionnaire Does the patient have a severe egg allergy?: No Does the patient have severe life threatening allergies?: No Does the patient have a fever or illness today?: No Has the patient ever had Guillain-Como Syndrome?: No Has the patient ever had any past reaction to a flu shot?: No Immunizations flu vacc [id number] 6mos up(PF) 60 mcg(15 mcgx4)/0.5 mL IM syringe Performing Provider: Paige Gonsalez MD [place] [facility] [place] [facility] Administered by: Gogo Rosario CMA on 12/09/22 10:47 2 Dose Route Admin Location Dispensed Lot Number Expiration Date NDC Receiver 0.5 mL IM Right Deltoid 0.5 mL [id number] 08/06/23 98422-484-81 Diffon VIS Given Date VIS Provided VIS Publication Date 12/09/22 Single Vaccine 20 Eligibility Eligibility Date Funding Source Not [facility] Eligible 12/09/22 Private Assessment and Plan Assessment & Plan (1) Encounter for general adult medical examination with abnormal findings: Code(s): Z00.01 - Encounter for general adult medical examination with abnormal findings (2) Obesity due to excess calories: Code(s): E66.09 - Other obesity due to excess calories Qualifiers: Obesity classification: adult class 1 (BMI 30 - 34.9) Serious obesity comorbidity presence: with serious comorbidity Body mass index: BMI 33.0-33.9 Qualified Code(s): E66.09 - Other obesity due to excess calories; Z68.33 - Body mass index [BMI] 33.0-33.9, adult (3) Lipid disorder: Code(s): E78.9 - Disorder of lipoprotein metabolism, unspecified (4) Constipation: Code(s): K59.00 - Constipation, unspecified Qualifiers: Constipation type: slow transit constipation Qualified Code(s): K59.01 - Slow transit constipation (5) Iron deficiency anemia: Code(s): D50.9 - Iron deficiency anemia, unspecified Qualifiers: Iron deficiency anemia type: chronic blood loss Qualified Code(s): D50.0 - Iron deficiency anemia secondary to blood loss (chronic) (6) Intellectual disability: Code(s): F79 - Unspecified intellectual disabilities Plan Patient is 47-year-old female with intellectual disability came in today for physical examination Patient is due for labs, she had labs done in August she is slightly anemic She is also taking medication for high cholesterol, 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 Patient is a establish with OBGYN, breast exam and Pap smears are through them Mammogram is up-to-date BMI is elevated at 33.2 but she has managed to lose couple of lb since seen last Vital signs are stable Constipation is stable Orders: Orders Influenza [id number] Immunization Today D64.9 - Anemia, unspecified, E66.09 - Other obesity due to excess calories, E78.9 - Disorder of lipoprotein metabolism, unspecified, K59.00 - Constipation, unspecified, Z00.01 - Encounter for general adult medical examination with abnormal findings, Z23 - Encounter for immunization Comprehensive [place]. Panel Fast Today D64.9 - Anemia, unspecified, E66.09 - Other obesity due to excess calories, E78.9 - Disorder of lipoprotein metabolism, unspecified, K59.00 - Constipation, unspecified, Z00.01 - Encounter for general adult medical examination with abnormal findings Lipid Panel Today D64.9 - Anemia, unspecified, E66.09 - Other obesity due to excess calories, E78.9 - Disorder of lipoprotein metabolism, unspecified, K59.00 - Constipation, unspecified, Z00.01 - Encounter for general adult medical examination with abnormal findings Complete Blood Count Auto Diff Today D64.9 - Anemia, unspecified, E66.09 - Other obesity due to excess calories, E78.9 - Disorder of lipoprotein metabolism, unspecified, K59.00 - Constipation, unspecified, Z00.01 - Encounter for general adult medical examination with abnormal findings IRON PROFILE Today D64.9 - Anemia, unspecified, E66.09 - Other obesity due to excess calories, E78.9 - Disorder of lipoprotein metabolism, unspecified, K59.00 - Constipation, unspecified, Z00.01 - Encounter for general adult medical examination with abnormal findings Coding Level of Care Code Est Pt Prev Care 40-64y(61273) Diagnoses Encounter for general adult medical examination with abnormal findings Z00.01 Class 1 obesity due to excess calories with serious comorbidity and body mass index (BMI) of 33.0 to 33.9 in adult E66.09; Z68.33 Obesity classification: adult class 1 (BMI 30 - 34.9) Serious obesity comorbidity presence: with serious comorbidity Body mass index: BMI 33.0-33.9 Lipid disorder E78.9 Slow transit constipation K59.01 Constipation type: slow transit constipation Iron deficiency anemia due to chronic blood loss D50.0 Iron deficiency anemia type: chronic blood loss Intellectual disability F79 Additional Codes MARIANNE-7 Assessment Billing - MARIANNE-7 Assessment Tool: MARIANNE-7 Assessment [id number] ([id number])
== END 2022-12-09 12:57 | disposition home or self-care (01) ==
PROVIDERS: PCP Internal Medicine; Visit Provider Internal Medicine
DX: Z00.00 Encounter for general adult medical examination without abnormal findings (principal); E66.09 Other obesity due to excess calories; Z68.33 Body mass index [BMI] 33.0-33.9, adult; E78.9 Disorder of lipoprotein metabolism, unspecified; K59.01 Slow transit constipation; D50.0 Iron deficiency anemia secondary to blood loss (chronic); F79 Unspecified intellectual disabilities; Z23 Encounter for immunization; D64.9 Anemia, unspecified; K59.00 Constipation, unspecified
CPT/HCPCS: 90471; 90686; 99396

== ENCOUNTER 2022-12-09 11:00 | Outpatient (REF) | payer MEDICARE, MEDICAID, SELFPAY ==
[2022-12-09 13:10] LABS: MANUAL DIFF FLAG NO
[2022-12-09 13:29] LABS: Basophils Percent Auto 0.7 % (0-2); Eosinophils Absolute Auto 0.6 X10*3/uL (0.0-0.4); Eosinophils Percent Auto 14.5 % (0-4); Hematocrit 38.6 % (37.0-47.0); Hemoglobin 12.2 g/dl (12.0-16.0); Imm Gran Abs Auto 0.01 X10*3/uL (0.00-0.03); Imm Gran Pct Auto 0.2 % (0.0-0.4); Lymphocytes Absolute Auto 1.8 X10*3/uL (1.2-4.9); Lymphocytes Percent Auto 42.7 % (20-40); Mean Corpuscular HGB Conc 31.6 g/dl (31.0-35.0); Mean Platelet Volume 9.6 fL (9.4-12.3); Monocytes Absolute Auto 0.3 X10*3/uL (0.1-1.2); Monocytes Percent Auto 6.1 % (2-11); Neutrophils Absolute Auto 1.5 x10*3/uL (2.0-8.3); Neutrophils Percent Auto 35.8 % (45-73); Platelet Count 193 X10*3/uL (160-400); Red Blood Count 3.94 X10*6/uL (4.20-5.50); Red Cell Distribution Width 14.3 % (11.0-16.0); White Blood Count 4.3 X10*3/uL (4.8-10.8)
[2022-12-09 13:51] LABS: Alanine Aminotransferase 13 U/L (0-31); Albumin Level 4.1 g/dL (3.5-5.0); Alkaline Phosphatase 88 U/L (39-117); Anion Gap 12 (12-20); Aspartate Amino Transferase 21 U/L (5-31); Bilirubin Total 0.3 mg/dL (0.0-1.0); Blood Urea Nitrogen 21 mg/dL (9-16); Carbon Dioxide 27 mmol/L (22-29); Chloride 103 mmol/L (96-108); Cholesterol 223 mg/dL (<200); Estimated Glomerular Filt Rate > 60; Glucose Fasting 99 mg/dL (60-99); HDL Cholesterol 54 mg/dL (>40); Iron 78 mcg/dL (30-160); LDL Cholesterol Calculated 139 mg/dL (<100); Percent Iron Saturation 23 % (15-50); Potassium 3.9 mmol/L (3.3-5.1); Sodium 138 mmol/L (135-145); Total Iron Binding Capacity 339 mcg/dL (228-428); Total Protein 7.6 g/dL (6.5-8.0); Triglycerides 153 mg/dL (<150); Unsaturated Iron Binding 261 ug/dL
== END 2022-12-09 11:01 | disposition home or self-care (01) ==
LOC: HO.HMGCLDS 11:00
PROVIDERS: PCP Internal Medicine; Visit Provider Internal Medicine
DX: Z00.01 Encounter for general adult medical examination with abnormal findings (principal); E66.09 Other obesity due to excess calories; K59.00 Constipation, unspecified; D64.9 Anemia, unspecified; E78.9 Disorder of lipoprotein metabolism, unspecified
CPT/HCPCS: 36415; 80053; 80061; 83540; 85025

== ENCOUNTER 2023-04-03 15:18 | Outpatient (REF) | payer MEDICARE, MEDICAID, SELFPAY ==
--- NOTE | ~2023-04-03 | US_ITS ---
EXAMINATION: US DIAGNOSTIC ULTRASOUND BREAST, LEFT CLINICAL INFORMATION: 6 month follow-up (first) to evaluate probable dirty cyst within the 12:00 axis of the left breast, approximately 5 cm from the nipple. COMPARISON: 09/21/2022 left breast ultrasound and mammography (BI-RADS 3), 08/15/2022 bilateral mammography (BI-RADS 0). TECHNIQUE: Ultrasound of the left breast is performed with real-time olivas scale imaging and color Doppler. Attention was focused on 11:00 to 1:00 axis in the region of previously seen complicated cyst. FINDINGS: There is no focal suspicious finding. There is no solid mass, architectural abnormality, duct ectasia, or edema in the soft tissue planes. There is a stable and unchanged probable complicated cyst with possible subtle through transmission, circumscribed, measuring 5 x 4 x 4 mm with no associated color Doppler flow or soft tissue component. There are low-level internal echoes, likely debris, making this likely a dirty cyst. This is located deep within the dense fibroglandular tissue. Six-month interval follow-up targeted left breast ultrasound recommended to ensure stability. No additional abnormalities noted. US/US breast LT limited mamm only IMPRESSION: No findings suspicious for malignancy. Stable probably benign 5 x 4 x 4 mm complicated cyst left breast 12:00 axis, 5 cm from the nipple. To ensure stability, additional six-month interval follow-up targeted left breast ultrasound recommended when the patient is due for bilateral mammography. ASSESSMENT: BI-RADS 3 - Probably benign finding(s) - 6 month follow-up suggested RECOMMENDATION: 6 Month F/U This patient's information was entered into a reminder system with a target due date for their next mammogram.
== END 2023-04-03 15:19 | disposition home or self-care (01) ==
LOC: HO.MAMMO 15:18
PROVIDERS: PCP Internal Medicine; Visit Provider Internal Medicine
DX: R92.2 Inconclusive mammogram (principal)
CPT/HCPCS: 76642

== ENCOUNTER → 2023-04-03 15:30 | Outpatient (BNV) | payer MEDICARE, MEDICAID, SELFPAY | PROVIDERS: PCP Internal Medicine; Visit Provider Radiology Diagnostic Radiology | DX: N63.25 Unspecified lump in the left breast, overlapping quadrants (principal) | CPT/HCPCS: 76642 ==

== ENCOUNTER 2023-05-17 08:53 | Outpatient (AMB) | payer MEDICARE, MEDICAID, SELFPAY ==
[2023-05-17 09:02] VITALS: BP 102/60; BMI 33.6
--- NOTE | 2023-05-17 09:02 | MHC.OFFVIS ---
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 Accompanied by Melvina her staff support. Lives at home with her father. Doing well with no concerns. She tries to eat healthy and stays active with exercise, enjoys bowling. Has a boyfriend only talking with. Melvina reports she is never on chaperoned. Currently is never sexually active. She denies vaginal itching and irritation. Denies family history of breast, ovarian or colon cancer. Mammogram: UTD. 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 [facility] Medical History Intellectual disability History of anxiety High cholesterol Surgical History History of total hysterectomy Family History Father History of hip replacement Mother Heart attack Sister No problems noted. Social History Household Members Other:: father Housing: House Alcohol intake: never Patient Tobacco Use Status: Never used Tobacco e-Cigarette/Vaping Use: Never Used Current occupational status: disabled Cognitive needs: Yes Hearing needs: No Vision needs: No Female Reproductive History Menstrual Menopause type: surgical Total pregnancies: 0 Date of Mammogram: 08/15/22 (Birad 0) Review of Systems Const All systems reviewed & are unremarkable except as noted in HPI and below Reports as per HPI Eyes Reports no additional complaints ENT Reports no additional complaints Card Reports no additional complaints Resp Reports no additional complaints GI Reports as per HPI and Reports no additional complaints Reports as per HPI Musc Reports no additional complaints Skin/Breast Reports as per HPI Neuro Reports no additional complaints Psych Reports no additional complaints Endo Reports no additional complaints Saravanan/Lymph Reports no additional complaints Aller/Immun Reports no additional complaints Physical Exam Vital Signs: Last Vital Signs BP 102/60 05/17/23 09:02 BMI result Body Mass Index 33.6 Const General: cooperative, healthy appearing, no acute distress, well developed and alert Orientation/consciousness: patient oriented x3 HEENT Head: Yes normal to inspection Eyes General: appearance normal, both eyes and all related structures Neck Neck: Yes normal visual inspection Thyroid: Thyroid normal Chest Chest palpation & inspection: normal inspection of the chest and other (no puckering, dimpling, peau de orange, retraction, discharge, masses) Breast/axilla inspection: normal inspection of the breasts Breast/axilla palpation: normal palpation of the breasts Resp Effort & Inspection: normal respiratory effort GI Inspection: Yes normal to inspection Palpation (GI): Soft to palpation Rectal Exam - Female: deferred Other: Narrow introitus, difficult exam for patient. General: Yes bladder normal to palpation External Female Exam: normal external appearance and normal appearance of the urethra Speculum Exam - Vagina: normal appearance of the vagina, normal palpation, normal vaginal discharge and vagina atrophic Speculum Exam - Cervix: normal appearance of the cervix and Cervix absent (Vaginal cuff no lesions or nodules) Bimanual exam- vagina & uterus: normal bimanual exam, normal palpation, bladder normal to palpation and uterus absent Bimanual Exam- Adnexa, other: no masses and Other (Limited due to tensing) Skin General skin exam: no rashes or lesions noted Rashes: no rashes Neuro General: patient oriented x3 Cognition (Neuro): normal cognition Extrem General: Yes normal to inspection Psych Attitude: cooperative Thought process: Normal thought process present Assessment & Plan Assessment & Plan (1) Encounter for well woman exam with routine gynecological exam: Code(s): Z01.419 - Encounter for gynecological examination (general) (routine) without abnormal findings Plan Discussed: Current recommendations for pap smears per ASCCP guidelines. Breast awareness and periodic breast exams. Maintain a healthy lifestyle including a well balanced diet and routine exercise. Mammogram yearly. Colonoscopy >45, or at risk sooner. Patient verbalizes understanding and agrees to the plan of care. She was given opportunity to ask questions and all questions were answered to the best of my ability. 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 This note is constructed using voice recognition software. While every effort has been made to ensure accuracy, private client advisor errors may have been included. Coding Level of Care Code Est Pt Prev Care 40-64y(87545) Diagnoses Encounter for well woman exam with routine gynecological exam Z01.419
== END 2023-05-17 09:39 | disposition home or self-care (01) ==
PROVIDERS: PCP Internal Medicine; Visit Provider Advanced Practice Midwife
DX: Z91.89 Other specified personal risk factors, not elsewhere classified (principal)
CPT/HCPCS: G0101

== ENCOUNTER → 2023-05-17 08:53 | Outpatient (BNVA) | payer MEDICARE, MEDICAID, SELFPAY | PROVIDERS: PCP Internal Medicine; Visit Provider Advanced Practice Midwife | DX: Z01.419 Encounter for gynecological examination (general) (routine) without abnormal findings (principal) | CPT/HCPCS: G0101 ==

== ENCOUNTER 2023-10-02 10:49 | Outpatient (REF) | payer MEDICARE, MEDICAID, SELFPAY ==
--- NOTE | ~2023-10-02 | US_ITS ---
EXAMINATION: MM DIAGNOSTIC DIGITAL BREAST TOMOSYNTHESIS, BILATERAL US BREAST LIMITED, LEFT MAMMOGRAPHY: CLINICAL INFORMATION: 6 month follow-up ultrasound probably benign left breast complicated cyst 12:00 axis . Patient due for bilateral screening mammography. COMPARISON: 04/03/2023 left breast ultrasound. 09/21/2022 left breast ultrasound and mammography (BI-RADS 3), 08/15/2022 bilateral mammography (BI-RADS 0). Exams dating back to 08/11/2021. TECHNIQUE: Digital breast tomosynthesis is performed in both the craniocaudal and mediolateral oblique views along with computer-aided detection (CAD). Synthesized 2D images are generated from the tomosynthesis. In addition, additional 3-D full field left MLO was obtained, as well as a 3-D laterally exaggerated full field left CC view. FINDINGS: The breasts are heterogeneously dense, which may obscure small masses (ACR BI-RADS breast composition Category c). Stable oval mass left breast 12:00 axis mid depth. Otherwise, there are no suspicious masses, suspicious grouped calcifications, or areas of architectural distortion in either breast. The parenchymal pattern is stable from prior exams. There is no skin or axillary abnormality. ULTRASOUND: CLINICAL INFORMATION: Follow-up complicated cyst within the 12:00 axis left breast, 5 cm from the nipple. COMPARISON: As above. TECHNIQUE: Targeted sonographic evaluation was performed using a high frequency linear transducer. Attention was given to the 12:00 axis left breast, in a region of noncomplicated cyst. Selected archived documentation. FINDINGS: LEFT BREAST: There is a stable and unchanged probable complicated cyst with possible subtle through transmission, circumscribed, measuring 5 x 5 x 4 mm with no associated color Doppler flow or soft tissue component. There are low-level internal echoes, likely debris, making this likely a dirty cyst. This is located deep within the dense fibroglandular tissue. 1 year interval follow-up targeted left breast ultrasound recommended to ensure stability. US/US breast LT limited mamm only IMPRESSION: There are no findings suspicious for malignancy in either breast. -Stable 5 x 5 x 4 mm complicated cyst left breast 12:00 axis, 4 cm from the nipple. Recommend one-year follow-up up targeted left breast ultrasound when the patient is due for bilateral screening. OVERALL ASSESSMENT: Mammography: BI-RADS 3 - Probably benign finding(s) - 12 month follow-up suggested Ultrasound: BI-RADS 3 - Probably benign finding(s) - 12 month follow-up suggested RECOMMENDATION: 12 month diagnostic follow up This patient's information was entered into a reminder system with a target due date for their next mammogram. Electronically signed by: Jonathan Martin MD 10/02/2023 12:12 PM EDT
== END 2023-10-02 10:50 | disposition home or self-care (01) ==
LOC: HO.MAMMO 10:49
PROVIDERS: PCP Internal Medicine; Visit Provider Internal Medicine
DX: R92.2 Inconclusive mammogram (principal)
CPT/HCPCS: 76642; 77062; 77066

== ENCOUNTER → 2023-10-02 11:00 | Outpatient (BNV) | payer MEDICARE, MEDICAID, SELFPAY | PROVIDERS: PCP Internal Medicine; Visit Provider Radiology Diagnostic Radiology | DX: R92.8 Other abnormal and inconclusive findings on diagnostic imaging of breast (principal) | CPT/HCPCS: 76642; 77066; G0279 ==

== ENCOUNTER 2024-01-10 12:26 | Outpatient (REF) | payer MEDICARE, MEDICAID, SELFPAY ==
[2024-01-10 16:08] LABS: MANUAL DIFF FLAG NO
[2024-01-10 16:13] LABS: Basophils Percent Auto 0.2 % (0-2); Eosinophils Absolute Auto 0.2 X10*3/uL (0.0-0.4); Eosinophils Percent Auto 4.2 % (0-4); Hematocrit 36.8 % (37.0-47.0); Hemoglobin 11.9 g/dl (12.0-16.0); Imm Gran Abs Auto 0.01 X10*3/uL (0.00-0.03); Imm Gran Pct Auto 0.2 % (0.0-0.4); Lymphocytes Absolute Auto 1.9 X10*3/uL (1.2-4.9); Lymphocytes Percent Auto 46.6 % (20-40); Mean Corpuscular HGB Conc 32.3 g/dl (31.0-35.0); Mean Corpuscular Hemoglobin 32.8 pg (27.0-33.0); Mean Corpuscular Volume 101.4 fL (80.0-98.0); Monocytes Absolute Auto 0.2 X10*3/uL (0.1-1.2); Neutrophils Absolute Auto 1.7 x10*3/uL (2.0-8.3); Neutrophils Percent Auto 42.8 % (45-73); Platelet Count 162 X10*3/uL (160-400); Red Blood Count 3.63 X10*6/uL (4.20-5.50); Red Cell Distribution Width 13.5 % (11.0-16.0)
[2024-01-10 16:41] LABS: Alanine Aminotransferase 13 U/L (0-31); Albumin Level 3.9 g/dL (3.5-5.0); Alkaline Phosphatase 91 U/L (39-117); Anion Gap 12 (12-20); Aspartate Amino Transferase 36 U/L (5-31); Bilirubin Total 0.3 mg/dL (0.0-1.0); Blood Urea Nitrogen 20 mg/dL (9-16); Calcium 9.3 mg/dL (8.4-10.2); Carbon Dioxide 28 mmol/L (22-29); Chloride 104 mmol/L (96-108); Estimated Glomerular Filt Rate > 60; Glucose Random 96 mg/dL (60-115); Potassium 4.6 mmol/L (3.3-5.1); Sodium 139 mmol/L (135-145); Total Protein 7.2 g/dL (6.5-8.0)
[2024-01-11 20:03] LABS: LDL Cholesterol Direct 113 mg/dL (<100)
--- OUTSIDE RECORDS SUMMARY | 2024-01-16 19:19 | XMS_ITS | Clinical Summary ---
Author Organization Unknown Care Team Providers Care Coo Name Role Phone RACHANA PYLE, MADHU Unavailable Unavailable MARGARITO FONG, TORY Unavailable Unavailable Payers Payer Name Policy Type Policy Number Effective Date Expira tion Date ON DEMAND MEDICARE - [place] MA BILLING - ABN [id number] [place] - AB[place] [id number] Problems Condition Name Condition Details Condition Category Status Onset Date Resolution Date Last Treatment Date Treating Clinician Comments POST-TRAUMAT IC STRESS DISORDER, UNSPECIFIED Active 10-24 00:00: 00 GENERALIZED ANXIETY DISORDER Active 2022-02 00:00: 00 MILD INTELLECTUAL DISABILITIES Active 2022-02 00:00: 00 PRISON (CURRENT) USE OF ASPIRIN Active 09-17 00:00: [...] mg chewable tablet 2018-02 00:00: 00 Yes [id number] 81 mg DAILY 81 mg DAILY (route: oral) Med Classific ation: Hematolog ical Agents carbamazepi ne 200 mg tablet 10-27 00:00: 00 06-03 14:56 :58.7 4 No [id number] 200 mg BEDTIME 200 mg BEDTIME (route: oral) Med Classific ation: Central Nervous System Agents fluoxetine 40 mg capsule 10-24 00:00: 00 01-26 23:59 :00 No [id number] 40 capsule DAILY 40 capsule DAILY (route: oral) Med Classific ation: Central Nervous System Agents fluoxetine 20 mg capsule 04-05 00:00: 00 01-26 23:59 :00 No [id number] 20 capsule EVERY AM 20 capsule EVERY AM (route: oral) Alternate Route: By mouth. Med Classific ation: Central Nervous System Agents lorazepam 0.5 mg tablet 10-24 00:00: 00 01-26 23:59 :00 No [id number] 0.5 mg 2 TIMES DAILY 0.5 mg 2 TIMES DAILY (route: oral) Med Classific ation: Central Nervous System Agents quetiapine 100 mg tablet 10-24 00:00: 00 01-26 23:59 :00 No [id number] 100 mg BEDTIME 100 mg BEDTIME (route: oral) Med Classific ation: Central Nervous System Agents quetiapine 25 mg tablet 04-05 00:00: 00 Yes [id number] 25 mg 2 TIMES DAILY 25 mg 2 TIMES DAILY (route: oral) Alternate Route: By mouth. Med Classific ation: Central Nervous System Agents simvastatin 20 mg tablet 08 00:00: 00 Yes [id number] 20 mg BEDTIME 20 mg BEDTIME (route: oral) Med Classific ation: Cardiovas cular Therapy Agents Tegretol XR 200 mg tablet,exte nded release 406 00:00: 00 Yes [id number] 200 mg BEDTIME 200 mg BEDTIME (route: oral) Med Classific ation: Central Nervous System Agents quetiapine 200 mg tablet 2021-02 00:00: 00 04-25 23:59 :00 No [id number] 200 mg BEDTIME 200 mg BEDTIME (route: oral) Med Classific ation: Central Nervous System Agents Lexapro 5 mg tablet 2021-02 00:00: 00 02-02 23:59 :00 No [id number] 5 mg DIRECTED 5 mg DIRECTED (route: oral) Med Classific ation: Central Nervous System Agents Lexapro 5 mg tablet 2021-02 00:00: 00 08-19 23:59 :00 No [id number] 10 mg DAILY 10 mg DAILY (route: oral) Med Classific ation: Central Nervous System Agents Ativan 0.5 mg tablet 2021-02 00:00: 00 08-19 23:59 :00 No [id number] 0.5 mg 2 TIMES DAILY 0.5 mg 2 TIMES DAILY (route: oral) Med Classific ation: Central Nervous System Agents fluoxetine 40 mg capsule 2021-02 2- 00:00: 00 05-05 23:59 :00 No [id number] 40 capsule DAILY 40 capsule DAILY (route: oral) Med Classific ation: Central Nervous System Agents quetiapine 200 mg tablet 2021-02 2- 00:00: 00 05-28 23:59 :00 No [id number] 200 mg BEDTIME 200 mg BEDTIME (route: oral) Med Classific ation: Central Nervous System Agents lorazepam 0.5 mg tablet 30 00:00: 00 Yes [id number] 1.5 tablet 2 TIMES DAILY 1.5 tablet 2 TIMES DAILY (route: oral) Med Classific ation: Central Nervous System Agents Lexapro 10 mg tablet 30 00:00: 00 04-09 23:59 :00 No [id number] 1 tablet DAILY 1 tablet DAILY (route: oral) Med Classific ation: Central Nervous System Agents quetiapine 200 mg tablet 7-14 00:00: 00 08-22 23:59 :00 No [id number] 1 tablet BEDTIME 1 tablet BEDTIME (route: oral) Med Classific ation: Central Nervous System Agents Lexapro 20 mg tablet 3-04 00:00: 00 Yes [id number] 20 mg EVERY AM 20 mg EVERY AM (route: oral) Med Classific ation: Central Nervous System Agents quetiapine 200 mg tablet 0 4-24 00:00: 00 Yes [id number] 200 mg BEDTIME 200 mg BEDTIME (route: [...] AWARENESS FOR SAFETY AND WILL NOTIFY CLINICAL SWIMMER AND PHYSICIAN/PROVIDER WITH ANY CHANGE IN CONDITION. [code = SKILLED NURSE WILL MAINTAIN SITUATIONAL AWARENESS FOR SAFETY AND WILL NOTIFY CLINICAL SWIMMER AND PHYSICIAN/PROVIDER WITH ANY CHANGE IN CONDITION.] [...] A WEEK AND PRE-POUR MEDICATIONS TILL NEXT HALFWAY VISIT PER MEDICATION LIST. [code = SKILLED NURSE TO ADMINISTER MEDICATIONS TWICE A WEEK AND PRE-POUR MEDICATIONS TILL NEXT HALFWAY VISIT PER MEDICATION LIST.] Future Scheduled Test [...] CARE WILL BE ESTABLISHED THAT MEETS PATIENT'S HALFWAY NEEDS AND INCLUDES PATIENT GOAL FOR HOME [...] End Date/Time Encounter Type Admission Type Attending [facility] Care Department Encounter ID Discharge Date Discharge Status Discharge Condition Discharge Reason Percent Goals Met 2022-12-02 00:00:00 2024-01-25 00:00:00 Outpatient RECERTIFIC TORY [facility]OOKS [facility] [id number] 12.00
--- OUTSIDE RECORDS SUMMARY | 2024-01-16 19:19 | XMS_ITS | Clinical Summary ---
Author Organization Unknown Care Team Providers Care Ribbon Blocker Name Role Phone RACHANA PYLE, MADHU Unavailable Unavailable MARGARITO FONG, TORY Unavailable Unavailable Payers Payer Name Policy Type Policy Number Effective Date Expira tion Date ON DEMAND MEDICARE - N[place] BILLING - ABN [id number] [place] [id number] Problems Condition Name Condition Details Condition Category Status Onset Date Resolution Date Last Treatment Date Treating Clinician Comments POST-TRAUMAT IC STRESS DISORDER, UNSPECIFIED Active 10-24 00:00: 00 GENERALIZED ANXIETY DISORDER Active 2022-02 00:00: 00 MILD INTELLECTUAL DISABILITIES Active 2022-02 00:00: 00 CARE HOME (CURRENT) USE OF ASPIRIN Active 09-17 00:00: [...] mg chewable tablet 2018-02 00:00: 00 Yes [id number] 81 mg DAILY 81 mg DAILY (route: oral) Med Classific ation: Hematolog ical Agents carbamazepi ne 200 mg tablet 10-27 00:00: 00 06-03 14:56 :58.7 4 No [id number] 200 mg BEDTIME 200 mg BEDTIME (route: oral) Med Classific ation: Central Nervous System Agents fluoxetine 40 mg capsule 10-24 00:00: 00 01-26 23:59 :00 No [id number] 40 capsule DAILY 40 capsule DAILY (route: oral) Med Classific ation: Central Nervous System Agents fluoxetine 20 mg capsule 04-05 00:00: 00 01-26 23:59 :00 No [id number] 20 capsule EVERY AM 20 capsule EVERY AM (route: oral) Alternate Route: By mouth. Med Classific ation: Central Nervous System Agents lorazepam 0.5 mg tablet 10-24 00:00: 00 01-26 23:59 :00 No [id number] 0.5 mg 2 TIMES DAILY 0.5 mg 2 TIMES DAILY (route: oral) Med Classific ation: Central Nervous System Agents quetiapine 100 mg tablet 10-24 00:00: 00 01-26 23:59 :00 No [id number] 100 mg BEDTIME 100 mg BEDTIME (route: oral) Med Classific ation: Central Nervous System Agents quetiapine 25 mg tablet 04-05 00:00: 00 Yes [id number] 25 mg 2 TIMES DAILY 25 mg 2 TIMES DAILY (route: oral) Alternate Route: By mouth. Med Classific ation: Central Nervous System Agents simvastatin 20 mg tablet 08 00:00: 00 Yes [id number] 20 mg BEDTIME 20 mg BEDTIME (route: oral) Med Classific ation: Cardiovas cular Therapy Agents Tegretol XR 200 mg tablet,exte nded release 406 00:00: 00 Yes [id number] 200 mg BEDTIME 200 mg BEDTIME (route: oral) Med Classific ation: Central Nervous System Agents quetiapine 200 mg tablet 2021-02 00:00: 00 04-25 23:59 :00 No [id number] 200 mg BEDTIME 200 mg BEDTIME (route: oral) Med Classific ation: Central Nervous System Agents Lexapro 5 mg tablet 2021-02 00:00: 00 02-02 23:59 :00 No [id number] 5 mg DIRECTED 5 mg DIRECTED (route: oral) Med Classific ation: Central Nervous System Agents Lexapro 5 mg tablet 2021-02 00:00: 00 08-19 23:59 :00 No [id number] 10 mg DAILY 10 mg DAILY (route: oral) Med Classific ation: Central Nervous System Agents Ativan 0.5 mg tablet 2021-02 00:00: 00 08-19 23:59 :00 No [id number] 0.5 mg 2 TIMES DAILY 0.5 mg 2 TIMES DAILY (route: oral) Med Classific ation: Central Nervous System Agents fluoxetine 40 mg capsule 2021-02 2- 00:00: 00 05-05 23:59 :00 No [id number] 40 capsule DAILY 40 capsule DAILY (route: oral) Med Classific ation: Central Nervous System Agents quetiapine 200 mg tablet 2021-02 2- 00:00: 00 05-28 23:59 :00 No [id number] 200 mg BEDTIME 200 mg BEDTIME (route: oral) Med Classific ation: Central Nervous System Agents lorazepam 0.5 mg tablet 30 00:00: 00 Yes [id number] 1.5 tablet 2 TIMES DAILY 1.5 tablet 2 TIMES DAILY (route: oral) Med Classific ation: Central Nervous System Agents Lexapro 10 mg tablet 30 00:00: 00 04-09 23:59 :00 No [id number] 1 tablet DAILY 1 tablet DAILY (route: oral) Med Classific ation: Central Nervous System Agents quetiapine 200 mg tablet 7-14 00:00: 00 08-22 23:59 :00 No [id number] 1 tablet BEDTIME 1 tablet BEDTIME (route: oral) Med Classific ation: Central Nervous System Agents Lexapro 20 mg tablet 3-04 00:00: 00 Yes [id number] 20 mg EVERY AM 20 mg EVERY AM (route: oral) Med Classific ation: Central Nervous System Agents quetiapine 200 mg tablet 0 4-24 00:00: 00 Yes [id number] 200 mg BEDTIME 200 mg BEDTIME (route: [...] AWARENESS FOR SAFETY AND WILL NOTIFY CLINICAL PRORATION CLERK AND PHYSICIAN/PROVIDER WITH ANY CHANGE IN CONDITION. [code = SKILLED NURSE WILL MAINTAIN SITUATIONAL AWARENESS FOR SAFETY AND WILL NOTIFY CLINICAL PRORATION CLERK AND PHYSICIAN/PROVIDER WITH ANY CHANGE IN CONDITION.] [...] A WEEK AND PRE-POUR MEDICATIONS TILL NEXT CUSTODIAL VISIT PER MEDICATION LIST. [code = SKILLED NURSE TO ADMINISTER MEDICATIONS TWICE A WEEK AND PRE-POUR MEDICATIONS TILL NEXT CUSTODIAL VISIT PER MEDICATION LIST.] Future Scheduled Test [...] CARE WILL BE ESTABLISHED THAT MEETS PATIENT'S CUSTODIAL NEEDS AND INCLUDES PATIENT GOAL FOR HOME [...] End Date/Time Encounter Type Admission Type Attending [facility] Care Department Encounter ID Discharge Date Discharge Status Discharge Condition Discharge Reason Percent Goals Met 2022-12-02 00:00:00 2024-01-25 00:00:00 Outpatient RECERTIFIC TORY HOOKS [facility] [id number] 12.00
== END 2024-01-10 12:27 | disposition home or self-care (01) ==
LOC: HO.HMGCLDS 12:26
PROVIDERS: PCP Internal Medicine; Visit Provider Internal Medicine
DX: E78.9 Disorder of lipoprotein metabolism, unspecified (principal); E66.09 Other obesity due to excess calories; Z68.33 Body mass index [BMI] 33.0-33.9, adult
CPT/HCPCS: 36415; 80053; 83721; 85025; 99212

== ENCOUNTER 2024-01-10 12:26 | Outpatient (AMB) | payer MEDICARE, MEDICAID, SELFPAY ==
[2024-01-10 12:29] VITALS: BP 112/66; PULSE 78; O2SAT 98; BMI 32.5
--- NOTE | 2024-01-10 12:29 | A.OFFPC_ITS ---
Vital Signs 01/10/24 12:29 Height 5 ft 4 in Weight 189 lb 6 oz BMI 32.5 BP 112/66 Blood Pressure Location Rt brachial Position Sitting Pulse 78 Pulse Source Pulse Oximeter Pulse Oximetry (%) 98 Oxygen Delivery Method Room Air Intake Visit Reasons: Med Management Allergies No Known Allergies Allergy (Verified 05/17/23 09:02) Medication List - Last Reconciled 01/10/24 by Paige Gonsalez MD carbamazepine mg PO escitalopram oxalate 20 mg PO DAILY fluoxetine 20 mg PO DAILY lorazepam 0.5 mg PO TID PRN quetiapine mg PO quetiapine 200 mg PO BEDTIME sennosides-docusate sodium 8.6-50 mg (Senokot-S) 1 tab-cap PO BEDTIME 90 days simvastatin 20 mg PO BEDTIME Tobacco use date assessed: 01/10/24 Dental Screening Dental Screen Date: 12/09/22 HPI Med Management HPI Details Patient is a 48-year-old female who was seen a year ago She has a lipid disorder and is taking simvastatin 20 mg Due for labs, refill provided She is now in a shelter and is here with the staff member Staff is requesting a script for Tylenol to be taken as needed for headache and body aches and pains. She will return in six-month for follow-up appointment, labs are needed before visit They offer no other complaints today [facility] Medical History Intellectual disability History of anxiety High cholesterol Surgical History History of total hysterectomy Family History Father History of hip replacement Mother Heart attack Sister No problems noted. Social History Household Members Other:: father Housing: House Alcohol intake: never Patient Tobacco Use Status: Never used Tobacco e-Cigarette/Vaping Use: Never Used Current occupational status: disabled Cognitive needs: Yes Hearing needs: No Vision needs: No Questionnaire Thrive Questionnaire Date Thrive assessed: 12/09/22 MARIANNE-7 AMB Questionnaire MARIANNE-7 Date MARIANNE - 7 assessed: 12/09/22 Source: Developed by Drs. Yusef Hoffmann, Darby Hernandez, Robin Gandhi and colleagues, with an educational sukumar from [employer]. Review of Systems Const Denies chills and Denies fever(s) ENT Denies epistaxis and Denies nasal discharge Card Denies chest pain Resp Denies chest congestion, Denies cough and Denies hemoptysis GI Denies diarrhea and Denies nausea Skin/Breast Denies rash Neuro Reports no additional complaints Psych Reports no additional complaints Endo Reports no additional complaints Physical exam (Primary Care) Vital Signs: Last Vital Signs Pulse 78 01/10/24 12:29 BP 112/66 01/10/24 12:29 Pulse Ox 98 01/10/24 12:29 Oxygen Delivery Method Room Air 01/10/24 12:29 BMI result Body Mass Index 32.5 Tobacco/Smoking Status: Tobacco use Status Tobacco use date assessed 01/10/24 01/10/24 12:32 Patient Tobacco Use Status Never used Tobacco 01/10/24 12:32 e-Cigarette/Vaping Use Never Used 01/10/24 12:32 Thrive Assessment: Date of Thrive Assessment Date Thrive assessed 12/09/22 01/10/24 12:32 Const General: cooperative, comfortable and no acute distress Orientation/consciousness: patient oriented x3 HENMT Head: Yes normocephalic Eyes General: appearance normal, both eyes and all related structures Neck Neck: Yes supple Resp Effort & Inspection: normal respiratory effort, no cough and no stridor Cardio Rhythm: regular rhythm Heart sounds: S1 normal heart sound present and S2 normal heart sound present Skin General skin exam: turgor normal Neuro General: patient oriented x3, tone normal and moves all extremities Extrem Right lower extremity: no edema Left lower extremity: no edema Coding Level of Care Code Est Pt Level 3 (84039) Diagnoses Lipid disorder E78.9 Class 1 obesity due to excess calories with serious comorbidity and body mass index (BMI) of 33.0 to 33.9 in adult E66.09; Z68.33 Obesity classification: adult class 1 (BMI 30 - 34.9) Serious obesity comorbidity presence: with serious comorbidity Body mass index: BMI 33.0-33.9 Assessment & Plan Assessment & Plan (1) Lipid disorder: Code(s): E78.9 - Disorder of lipoprotein metabolism, unspecified Category: Medical (2) Obesity due to excess calories: Code(s): E66.09 - Other obesity due to excess calories Category: Medical Qualifiers: Obesity classification: adult class 1 (BMI 30 - 34.9) Serious obesity comorbidity presence: with serious comorbidity Body mass index: BMI 33.0-33.9 Qualified Code(s): E66.09 - Other obesity due to excess calories; Z68.33 - Body mass index [BMI] 33.0-33.9, adult Plan Patient is a 48-year-old female who was seen a year ago She has a lipid disorder and is taking simvastatin 20 mg Due for labs, refill provided She is now in a shelter and is here with the staff member Staff is requesting a script for Tylenol to be taken as needed for headache and body aches and pains. She will return in six-month for follow-up appointment, labs are needed before visit They offer no other complaints today Orders: Orders Complete Blood Count Auto Diff Today E78.9 - Disorder of lipoprotein metabolism, unspecified Comprehensive Met. Panel Today E78.9 - Disorder of lipoprotein metabolism, unspecified Comprehensive Purvis. Panel Fast 6 Months E66.09 - Other obesity due to excess calories, E78.9 - Disorder of lipoprotein metabolism, unspecified, Z68.33 - Body mass index [BMI] 33.0-33.9, adult LDL Cholesterol Direct Today E78.9 - Disorder of lipoprotein metabolism, unspecified Complete Blood Count Auto Diff 6 Months E66.09 - Other obesity due to excess calories, E78.9 - Disorder of lipoprotein metabolism, unspecified, Z68.33 - Body mass index [BMI] 33.0-33.9, adult Lipid Panel 6 Months E66.09 - Other obesity due to excess calories, E78.9 - Disorder of lipoprotein metabolism, unspecified, Z68.33 - Body mass index [BMI] 33.0-33.9, adult Medications: New acetaminophen (Tylenol) Take 1 as needed for headache or body pain 325 mg PO ONCE 30 days PRN 30 tabs 0RF pain
--- OUTSIDE RECORDS SUMMARY | 2024-01-16 18:45 | XMS_ITS | Clinical Summary ---
Author Organization Unknown Care Team Providers Care Cvt Tech Name Role Phone RACHANA PYLE, MADHU Unavailable Unavailable MARGARITO FONG, TORY Unavailable Unavailable Payers Payer Name Policy Type Policy Number Effective Date Expira tion Date ON DEMAND MEDICARE - N[place] MA BILLING - ABN [id number] [place] [id number] Problems Condition Name Condition Details Condition Category Status Onset Date Resolution Date Last Treatment Date Treating Clinician Comments POST-TRAUMAT IC STRESS DISORDER, UNSPECIFIED Active 10-24 00:00: 00 GENERALIZED ANXIETY DISORDER Active 2022-02 00:00: 00 MILD INTELLECTUAL DISABILITIES Active 2022-02 00:00: 00 SENIOR LIVING (CURRENT) USE OF ASPIRIN Active 09-17 00:00: 00 Allergies, Adverse Reactions, Alerts Allergy Name Allergy Type Status Severity Reaction(s) Onset Date Inactive Date Treating Clinician Comments NKA Propensity to adverse reactions Active 2022-11 14:04:5 6 Medications Ordered Medication Name Filled Medication Name Start Date Stop Date Current Medication? Ordering Clinician Indication Dosage Frequency Signature (SIG) Comments Components aspirin 81 mg chewable tablet 2018-02 00:00: 00 Yes [id number] 81 mg DAILY 81 mg DAILY (route: oral) Med Classific ation: Hematolog ical Agents carbamazepi ne 200 mg tablet 10-27 00:00: 00 06-03 14:56 :58.7 4 No [id number] 200 mg BEDTIME 200 mg BEDTIME (route: oral) Med Classific ation: Central Nervous System Agents fluoxetine 40 mg capsule 10-24 00:00: 00 01-26 23:59 :00 No [id number] 40 capsule DAILY 40 capsule DAILY (route: oral) Med Classific ation: Central Nervous System Agents fluoxetine 20 mg capsule 04-05 00:00: 00 01-26 23:59 :00 No [id number] 20 capsule EVERY AM 20 capsule EVERY AM (route: oral) Alternate Route: By mouth. Med Classific ation: Central Nervous System Agents lorazepam 0.5 mg tablet 10-24 00:00: 00 01-26 23:59 :00 No [id number] 0.5 mg 2 TIMES DAILY 0.5 mg 2 TIMES DAILY (route: oral) Med Classific ation: Central Nervous System Agents quetiapine 100 mg tablet 10-24 00:00: 00 01-26 23:59 :00 No [id number] 100 mg BEDTIME 100 mg BEDTIME (route: oral) Med Classific ation: Central Nervous System Agents quetiapine 25 mg tablet 04-05 00:00: 00 Yes [id number] 25 mg 2 TIMES DAILY 25 mg 2 TIMES DAILY (route: oral) Alternate Route: By mouth. Med Classific ation: Central Nervous System Agents simvastatin 20 mg tablet 08 00:00: 00 Yes [id number] 20 mg BEDTIME 20 mg BEDTIME (route: oral) Med Classific ation: Cardiovas cular Therapy Agents Tegretol XR 200 mg tablet,exte nded release 406 00:00: 00 Yes [id number] 200 mg BEDTIME 200 mg BEDTIME (route: oral) Med Classific ation: Central Nervous System Agents quetiapine 200 mg tablet 2021-02 00:00: 00 04-25 23:59 :00 No [id number] 200 mg BEDTIME 200 mg BEDTIME (route: oral) Med Classific ation: Central Nervous System Agents Lexapro 5 mg tablet 2021-02 00:00: 00 02-02 23:59 :00 No [id number] 5 mg DIRECTED 5 mg DIRECTED (route: oral) Med Classific ation: Central Nervous System Agents Lexapro 5 mg tablet 2021-02 00:00: 00 08-19 23:59 :00 No [id number] 10 mg DAILY 10 mg DAILY (route: oral) Med Classific ation: Central Nervous System Agents Ativan 0.5 mg tablet 2021-02 00:00: 00 08-19 23:59 :00 No [id number] 0.5 mg 2 TIMES DAILY 0.5 mg 2 TIMES DAILY (route: oral) Med Classific ation: Central Nervous System Agents fluoxetine 40 mg capsule 2021-02 2- 00:00: 00 05-05 23:59 :00 No [id number] 40 capsule DAILY 40 capsule DAILY (route: oral) Med Classific ation: Central Nervous System Agents quetiapine 200 mg tablet 2021-02 2- 00:00: 00 05-28 23:59 :00 No [id number] 200 mg BEDTIME 200 mg BEDTIME (route: oral) Med Classific ation: Central Nervous System Agents lorazepam 0.5 mg tablet 30 00:00: 00 Yes [id number] 1.5 tablet 2 TIMES DAILY 1.5 tablet 2 TIMES DAILY (route: oral) Med Classific ation: Central Nervous System Agents Lexapro 10 mg tablet 30 00:00: 00 04-09 23:59 :00 No [id number] 1 tablet DAILY 1 tablet DAILY (route: oral) Med Classific ation: Central Nervous System Agents quetiapine 200 mg tablet 7-14 00:00: 00 08-22 23:59 :00 No [id number] 1 tablet BEDTIME 1 tablet BEDTIME (route: oral) Med Classific ation: Central Nervous System Agents Lexapro 20 mg tablet 3-04 00:00: 00 Yes [id number] 20 mg EVERY AM 20 mg EVERY AM (route: oral) Med Classific ation: Central Nervous System Agents quetiapine 200 mg tablet 0 4-24 00:00: 00 Yes [id number] 200 mg BEDTIME 200 mg BEDTIME (route: oral) Med Classific ation: Central Nervous System Agents Vital Signs Vital Name Observation Time Observation Value Commen ts Temperature 2023-12-25 14:15:00.000 97.9 [degF] Temperature 2023-12-20 09:47:00.000 97.9 [degF] Temperature 2023-12-18 11:15:00.000 97.5 [degF] Temperature 2023-12-13 14:46:00.000 98 [degF] Temperature 2023-12-11 13:01:00.000 98 [degF] Temperature 2023-12-06 10:59:00.000 97.6 [degF] Temperature 2023-12-04 11:46:00.000 97.9 [degF] Temperature 2023-11-29 10:52:00.000 97.6 [degF] Temperature 2023-11-27 22:58:00.000 97.6 [degF] Plan of Treatment Planned Activity Planned Date Details Comments Future Scheduled Test SKILLED NU RSE TO EVALUATE PATIENT, IDENTIFY PRIMARY AND CO-MORBID CONDITIONS CODED PER CODING GUIDELINES, AND DEVELOP PATIENT SPECIFIC PLAN OF CARE THAT INCLUDES PATIENT GOAL FOR HOME HEALTH. [code = SKILLED NURSE TO EVALUATE PATIENT, IDENTIFY PRIMARY AND CO-MORBID CONDITIONS CODED PER CODING GUIDELINES, AND DEVELOP PATIENT SPECIFIC PLAN OF CARE THAT INCLUDES PATIENT GOAL FOR HOME HEALTH.] Future Scheduled Test SKILLED NU RSE TO PERFORM HOME SAFETY AND FALL ASSESSMENT AND PROVIDE INSTRUCTION TO IMPLEMENT HOME SAFETY AND FALL PREVENTION STRATEGIES. [code = SKILLED NURSE TO PERFORM HOME SAFETY AND FALL ASSESSMENT AND PROVIDE INSTRUCTION TO IMPLEMENT HOME SAFETY AND FALL PREVENTION STRATEGIES.] Future Scheduled Test SKILLED NU RSE TO PROVIDE INSTRUCTION TO PATIENT/CAREGIVER RELATED TO DISCHARGE PLANNING. [code = SKILLED NURSE TO PROVIDE INSTRUCTION TO PATIENT/CAREGIVER RELATED TO DISCHARGE PLANNING.] Future Scheduled Test SKILLED NU RSE TO O/A OF PATIENTS MENTAL/BEHAVIORAL STATUS, ASSESS VITAL SIGNS TWICE A WEEK [code = SKILLED NURSE TO O/A OF PATIENTS MENTAL/BEHAVIORAL STATUS, ASSESS VITAL SIGNS TWICE A WEEK ] Future Scheduled Test CLINICAL S UMMARY (SOC/RECERT, 10 DAY, 60 DAY): THE PATIENT IS RECEIVING HOMECARE DUE TO NEW ONSET/EXACERBATION OF: YES RECENT HOSPITALIZATION/INPATIENT ADMISSION RELATED TO: NO NEW OR CHANGED MEDICATIONS PERTINENT TO THE PLAN OF CARE: NO PATIENT LIVING SITUATION/CAREGIVER STATUS: WITH FAMILY SUMMARIZE SKILLED NEED: MEDICATION MANAGEMENT, VITAL SIGN ASSESSMENT. PATIENT NEEDS FREQUENT REMINDERS ON ROUTINE BLOOD [code = CLINICAL SUMMARY (SOC/RECERT, 10 DAY, 60 DAY): THE PATIENT IS RECEIVING HOMECARE DUE TO NEW ONSET/EXACERBATION OF: YES RECENT HOSPITALIZATION/INPATIENT ADMISSION RELATED TO: NO NEW OR CHANGED MEDICATIONS PERTINENT TO THE PLAN OF CARE: NO PATIENT LIVING SITUATION/CAREGIVER STATUS: WITH FAMILY SUMMARIZE SKILLED NEED: MEDICATION MANAGEMENT, VITAL SIGN ASSESSMENT. PATIENT NEEDS FREQUENT REMINDERS ON ROUTINE BLOOD ] Future Scheduled Test SKILLED NU RSE WILL MAINTAIN SITUATIONAL AWARENESS FOR SAFETY AND WILL NOTIFY CLINICAL DISTRIBUTION SYSTEMS SUPERINTENDENT AND PHYSICIAN/PROVIDER WITH ANY CHANGE IN CONDITION. [code = SKILLED NURSE WILL MAINTAIN SITUATIONAL AWARENESS FOR SAFETY AND WILL NOTIFY CLINICAL DISTRIBUTION SYSTEMS SUPERINTENDENT AND PHYSICIAN/PROVIDER WITH ANY CHANGE IN CONDITION.] Future Scheduled Test SKILLED NU RSE TO REVIEW PATIENT MEDICATIONS. INSTRUCT PATIENT/CAREGIVER ON MONITORING OF EFFECTIVENESS, ADVERSE DRUG REACTIONS, SIDE EFFECTS OF ALL MEDICATIONS (PRESCRIPTION/-OTC), AND HOW AND WHEN TO REPORT PROBLEMS. [code = SKILLED NURSE TO REVIEW PATIENT MEDICATIONS. INSTRUCT PATIENT/CAREGIVER ON MONITORING OF EFFECTIVENESS, ADVERSE DRUG REACTIONS, SIDE EFFECTS OF ALL MEDICATIONS (PRESCRIPTION/-OTC), AND HOW AND WHEN TO REPORT PROBLEMS.] Future Scheduled Test SKILLED NU RSE TO ADMINISTER MEDICATIONS TWICE A WEEK AND PRE-POUR MEDICATIONS TILL NEXT SHELTER VISIT PER MEDICATION LIST. [code = SKILLED NURSE TO ADMINISTER MEDICATIONS TWICE A WEEK AND PRE-POUR MEDICATIONS TILL NEXT SHELTER VISIT PER MEDICATION LIST.] Future Scheduled Test SKILLED NU RSE FOR MEDICATION ADMINISTRATION PER MEDICATION LIST TO BE PERFORMED TWICE A WEEK [code = SKILLED NURSE FOR MEDICATION ADMINISTRATION PER MEDICATION LIST TO BE PERFORMED TWICE A WEEK ] Future Scheduled Test SKILLED NU RSE FOR O/A AND SKILLED TEACHING RELATED TO MANAGEMENT OF DEPRESSIVE SYMPTOMS AND/OR DEPRESSION. SN TO REPORT SIGNIFICANT CHANGE IN DEPRESSIVE SYMPTOMS TO CLINICAL PROVIDER FOR EARLY INTERVENTION. [code = SKILLED NURSE FOR O/A AND SKILLED TEACHING RELATED TO MANAGEMENT OF DEPRESSIVE SYMPTOMS AND/OR DEPRESSION. SN TO REPORT SIGNIFICANT CHANGE IN DEPRESSIVE SYMPTOMS TO CLINICAL PROVIDER FOR EARLY INTERVENTION.] Future Scheduled Test SKILLED NU RSE FOR O/A OF NEUROCOGNITIVE AND BEHAVIORAL STATUS [code = SKILLED NURSE FOR O/A OF NEUROCOGNITIVE AND BEHAVIORAL STATUS] Future Scheduled Test SKILLED NU RSE FOR O/A OF ALTERED MOOD [code = SKILLED NURSE FOR O/A OF ALTERED MOOD] Future Scheduled Test SKILLED NU RSE TO ASSESS PATIENTS PSYCHOSOCIAL STATUS TO IDENTIFY POTENTIAL ISSUES THAT MAY COMPLICATE THE PROVISION OF THE PLAN OF CARE INCLUDING THE PATIENTS ABILITY TO ACCESS COMMUNITY RESOURCES AND PSYCHOSOCIAL SUPPORT SERVICES. [code = SKILLED NURSE TO ASSESS PATIENTS PSYCHOSOCIAL STATUS TO IDENTIFY POTENTIAL ISSUES THAT MAY COMPLICATE THE PROVISION OF THE PLAN OF CARE INCLUDING THE PATIENTS ABILITY TO ACCESS COMMUNITY RESOURCES AND PSYCHOSOCIAL SUPPORT SERVICES.] Future Scheduled Test SKILLED NU RSE FOR O/A OF CLIENT'S SOCIAL ISOLATION AND PROVIDE ASSISTANCE TO CLIENT IN DEVELOPMENT OF PLANNED ACTIVITIES [code = SKILLED NURSE FOR O/A OF CLIENT'S SOCIAL ISOLATION AND PROVIDE ASSISTANCE TO CLIENT IN DEVELOPMENT OF PLANNED ACTIVITIES] Future Scheduled Test MEDICATION S WILL BE HELD AND STORED IN LOCKBOX [code = MEDICATIONS WILL BE HELD AND STORED IN LOCKBOX] Goal 2023-05-29 Patient Goal - TAKING MY MED S Goal 2023-07-26 Patient Goal - TAKING MY MED S Goal 2023-09-23 Patient Goal - TAKING MY MED S Goal Patient Goal - TAKING MY MED S Goal 2023-01-26 Patient Goal - TAKING MY MED S Goal 2023-03-27 Patient Goal - TAKING MY MED S Goal 2023-11-22 Patient Goal - TAKING MY MED S Goal Provider Goal - A PLAN OF CARE WILL BE ESTABLISHED THAT MEETS PATIENT'S SHELTER NEEDS AND INCLUDES PATIENT GOAL FOR HOME HEALTH. Goal Provider Goal - PATIENT/CAREGIVER WILL VERBALIZE/DEMONSTRATE EFFECTIVE HOME SAFETY AND FALL PREVENTION STRATEGIES THROUGHOUT CERTIFICATION PERIOD. Goal Provider Goal - PATIENT/CAREGIVER WILL VERBALIZE UNDERSTANDING OF DISCHARGE PLANNING INSTRUCTIONS BY DATE OF DISCHARGE. Goal Provider Goal - ALTERED MENTAL/BEHAVIORAL STATUS WILL BE IDENTIFIED PROMPTLY AND INTERVENTION INITIATED QUICKLY TO MINIMIZE ASSOCIATED RISKS THROUGHOUT CERTIFICATION PERIOD. Goal Provider Goal - PATIENT WILL REMAIN SAFE, FREE FROM HOSPITALIZATION, AND ADHERE TO THE SKILLED NURSES PLAN OF CARE THROUGHOUT THE CERTIFICATION PERIOD. Goal Provider Goal - PATIENT WILL REMAIN SAFE IN THE COMMUNITY AND WILL BE FREE OF DANGER TO SELF AND OTHERS THROUGHOUT THE CERTIFICATION PERIOD. Goal Provider Goal - PATIENT/CAREGIVER WILL VERBALIZE UNDERSTANDING OF EDUCATION PROVIDED ON MEDICATIONS BY THE END OF THE CERTIFICATION PERIOD. Goal Provider Goal - PATIENT WILL COMPLY WITH MEDICATION WHEN SKILLED NURSE ADMINISTERS AND PRE-POURS MEDICATION THROUGHOUT CERTIFICATION PERIOD. Goal Provider Goal - PATIENT WILL COMPLY WITH MEDICATION WHEN NURSE ADMINISTERS THROUGHOUT CERTIFICATION PERIOD. Goal Provider Goal - PATIENT WILL REMAIN SAFE WITHOUT DECOMPENSATION IN DEPRESSIVE CONDITION, WHILE MAINTAINING OPTIMAL LEVEL OF MENTAL HEALTH AND WELL BEING THROUGHOUT CERTIFICATION PERIOD. Goal Provider Goal - PATIENT WILL BE ABLE TO PERFORM DAILY FUNCTIONS AND MAINTAIN OPTIMAL BEHAVIORAL/NEUROCOGNITIVE STATUS THROUGHOUT CERTIFICATION PERIOD. Goal Provider Goal - PATIENT WILL BE ABLE TO PERFORM DAILY FUNCTIONS AND HAVE OPTIMAL IMPROVEMENT IN MOOD STABILITY THROUGHOUT CERTIFICATION PERIOD. Goal Provider Goal - PSYCHOSOCIAL NEEDS WILL BE IDENTIFIED AND PLAN IMPLEMENTED TO MINIMIZE RISK THROUGHOUT CERTIFICATION PERIOD. Goal Provider Goal - PATIENT WILL DEMONSTRATE AN INCREASED INTEREST IN SOCIALIZATION AND ACTIVITIES BY THE END OF THE CERTIFICATION PERIOD. Goal Provider Goal - MEDICATION WILL BE STORED IN LOCKBOX FOR SAFETY. Encounters Start Date/Time End Date/Time Encounter Type Admission Type Attending [facility] Care Department Encounter ID Discharge Date Discharge Status Discharge Condition Discharge Reason Percent Goals Met 2022-12-02 00:00:00 2024-01-25 00:00:00 Outpatient RECERTIFIC TORY HOOKS [facility] [id number] 12.00
== END 2024-01-10 12:50 | disposition home or self-care (01) ==
LOC: HO.HMCC 12:26
PROVIDERS: PCP Internal Medicine; Visit Provider Internal Medicine
DX: E78.9 Disorder of lipoprotein metabolism, unspecified (principal); E66.09 Other obesity due to excess calories; Z68.33 Body mass index [BMI] 33.0-33.9, adult

== ENCOUNTER 2024-02-21 13:00 | Outpatient (AMB) | payer MEDICARE, MEDICAID, SELFPAY ==
[2024-02-21 13:04] VITALS: BP 110/70; PULSE 107; O2SAT 97; BMI 32.8
--- NOTE | 2024-02-21 13:04 | A.OFFPC_ITS ---
Vital Signs 02/21/24 13:04 Height 5 ft 4 in Weight 191 lb 2 oz BMI 32.8 BP 110/70 Blood Pressure Location Rt brachial Position Sitting Pulse 107 H Pulse Source Pulse Oximeter Pulse Oximetry (%) 97 Oxygen Delivery Method Room Air Intake Visit Reasons: Recent fell Allergies No Known Allergies Allergy (Verified 02/21/24 13:11) Medication List - Last Reconciled 02/21/24 by Paige Gonsalez MD acetaminophen (Tylenol) 325 mg PO ONCE PRN 30 days carbamazepine mg PO escitalopram oxalate 20 mg PO DAILY fluoxetine 20 mg PO DAILY lorazepam 0.5 mg PO TID PRN quetiapine mg PO quetiapine 200 mg PO BEDTIME sennosides-docusate sodium 8.6-50 mg (Senokot-S) 1 tab-cap PO BEDTIME 90 days simvastatin 20 mg PO BEDTIME Tobacco use date assessed: 02/21/24 Dental Screening Dental Screen Date: 02/21/24 Did you have a dental visit in the last 12 months?: Yes Did you have a dental problem in the last 6 months where you did not have access to dental care?: No Was dental information given to patient?: Patient has dentist HPI Recent fell HPI Details - The patient is a 48-year-old female pr esenting with ear pain. - Recent onset of ear pain noted by koffi ent the previous night. - Patient mentioned getting water in the ear while showering. - Prior issues noted with presence of zapata bstantial earwax. - Reported history of anemia, slight, wi th hemoglobin level recorded at 11.9 g/dL previously. - History of hypercholesterolemia, manag ed with simvastatin 20 mg; no recent medication changes reported. Problem List - Earwax impaction - Pain in the ear - Anemia - Hypercholesterolemia Patient Instructions - Take prescribed antibiotics as directe d for ear pain and possible infection. - Use the ear drops at night after compl eting the antibiotic regimen, starting three days before the next appointment. - Insert three to four drops in each aff ected ear, and place a small piece of cotton to prevent leakage. - Schedule and complete laboratory tests before the upcoming July 12 appointment. - Monitor for symptoms of ear infection or increased pain and seek care sooner if symptoms worsen. Review of Systems - ENT: Reports ear pain, denies any inse rtion of foreign objects. - General: No fever no chills - Neurological: No headaches no dizziness - Cardiovascular: No syncope, no chest pain, no palpitations - Gastrointestinal: No nausea vomiting or diarrhea - Endocrine: No polyuria polydipsia no heat intolerance - Genitourinary: No dysuria , no blood in urine Physical Exam General: No acute distress HEENT: Ears need cleaning, pain noted in left ear with tragus pressure, antibiotics and ear drops prescribed Neck: Supple Respiratory system: Able to talk in full sentences, no audible wheeze cardiovascular: S1-S2 regular in rate and rhythm Gastrointestinal: No pain Extremities: No new findings PODIATRIC ASSISTANT: Alert awake oriented x3 motor sensory intact Skin: Normal turgor [facility] Medical History Intellectual disability History of anxiety High cholesterol Surgical History History of total hysterectomy Family History Father History of hip replacement Mother Heart attack Sister No problems noted. Social History Household Members Other:: father Housing: House Alcohol intake: never Patient Tobacco Use Status: Never used Tobacco e-Cigarette/Vaping Use: Never Used Current occupational status: disabled Cognitive needs: Yes Hearing needs: No Vision needs: No Questionnaire PHQ-9 Over the last 2 weeks, how often have you been bothered by any of the following problems? 1. Little interest or pleasure in doing things: not at all 2. Feeling down, depressed, or hopeless: not at all 3. Trouble falling or staying asleep, or sleeping too much: more than half the days 4. Feeling tired or having little energy: more than half the days 5. Poor appetite or overeating: not at all 6. Feeling bad about yourself - or that you are a failure or have let yourself or your family down: not at all 7. Trouble concentrating on things, such as reading the newspaper or watching television: not at all 8. Moving or speaking so slowly that other people could have noticed. Or the opposite - being so fidgety or restless that you have been moving around a lot more than usual: not at all 9. Thoughts that you would be better off or of hurting yourself in some way: not at all Total score: 4 Depression Screening Interpretation: Negative Depression Screening Done: Yes 73109 - PHQ-9 Billing: Yes Source: Developed by Drs. Yusef Hoffmann, Darby Hernandez, Robin Gandhi and colleagues, with an educational sukumar from [employer]. Thrive Questionnaire Date Thrive assessed: 02/21/24 I am a: Patient What is your living situation today?: I have a place to live, but I am worried about losing it in the future Within the past 12 months, did the food you bought not last and you didn't have the money to get more?: I choose not to answer this question Within the past 12 months, did you worry whether your food would run out before you got money to buy more?: I choose not to answer this question Do you have trouble paying for medicines?: No Do you have trouble getting transportation to medical appointments?: No Do you have trouble paying your heating and electricity bill?: No Do you have trouble taking care of your child, family member or friend?: No Do you have trouble with day-to-day activities such as bathing, preparing meals, shopping, managing finances, etc.?: No Are you currently unemployed and looking for a job?: No Are you interested in more education?: No Please select the resources that you would like help with: None Currently or been in a relationship where the following occur: No concerns reported THRIVE Score: 1 AUDIT C Alcohol Use Questionnaire (AUDIT-C) 1. How often do you have a drink containing alcohol?: Never 3. How often do you have six or more drinks on one occasion?: Never Total Score: 0 Score Reviewed/Action Taken: Yes MARIANNE-7 AMB Questionnaire MARIANNE-7 Date MARIANNE - 7 assessed: 02/21/24 Feeling nervous, anxious, or on edge: 1 = Several days Not being able to stop or control worryin = Several days Worrying too much about different things: 0 = Not at all Trouble relaxin = Not at all Being so restless that it is hard to sit still: 0 = Not at all Becoming easily annoyed or irritable: 0 = Not at all Feeling afraid as if something awful might happen: 0 = Not at all Total MARIANNE-7 score (0-4 normal; 5-9 mild; 10-14 moderate; 15-21 severe): 2 Source: Developed by Drs. Yusef Hoffmann, Darby Hernandez, Robin Gandhi and colleagues, with an educational sukumar from [employer]. MARIANNE-7 Assessment Billing MARIANNE-7 Assessment Tool: MARIANNE-7 Assessment 18217 Physical exam (Primary Care) Vital Signs: Last Vital Signs Pulse 107 H 02/21/24 13:04 BP 110/70 02/21/24 13:04 Pulse Ox 97 02/21/24 13:04 Oxygen Delivery Method Room Air 02/21/24 13:04 BMI result Body Mass Index 32.8 Tobacco/Smoking Status: Tobacco use Status Tobacco use date assessed 02/21/24 02/21/24 13:12 Patient Tobacco Use Status Never used Tobacco 02/21/24 13:05 e-Cigarette/Vaping Use Never Used 02/21/24 13:05 PHQ-9: PHQ-9 Score PHQ-9: Total score 4 02/21/24 13:23 Depression Screening Interpretation: Negative Thrive Assessment: Date of Thrive Assessment Date Thrive assessed 02/21/24 02/21/24 13:05 Currently or been in a relationship where the following occur: No concerns reported Coding Level of Care Code Est Pt Level 3 (01653) Diagnoses Ear pain, left H92.02 Excessive cerumen in both ear canals H61.23 Iron deficiency anemia due to chronic blood loss D50.0 Iron deficiency anemia type: chronic blood loss Lipid disorder E78.9 Additional Codes MARIANNE-7 Assessment Billing - MARIANNE-7 Assessment Tool: MARIANNE-7 Assessment 03071 ([id number]) PHQ-9 - 20118 - PHQ-9 Billing: Yes ([id number]) Assessment & Plan Assessment & Plan (1) Ear pain, left: Code(s): H92.02 - Otalgia, left ear Category: Medical (2) Excessive cerumen in both ear canals: Code(s): H61.23 - Impacted cerumen, bilateral Category: Medical (3) Iron deficiency anemia: Code(s): D50.9 - Iron deficiency anemia, unspecified Category: Medical Qualifiers: Iron deficiency anemia type: chronic blood loss Qualified Code(s): D50.0 - Iron deficiency anemia secondary to blood loss (chronic) (4) Lipid disorder: Code(s): E78.9 - Disorder of lipoprotein metabolism, unspecified Category: Medical Plan - The patient is a 48-year-old female presenting with ear pain. - Recent onset of ear pain noted by patient the previous night. - Patient mentioned getting water in the ear while showering. - Prior issues noted with presence of substantial earwax. - Reported history of anemia, slight, with hemoglobin level recorded at 11.9 g/dL previously. - History of hypercholesterolemia, managed with simvastatin 20 mg; no recent medication changes reported. Problem List - Earwax impaction - Pain in the ear - Anemia - Hypercholesterolemia Patient Instructions - Take prescribed antibiotics as directed for ear pain and possible infection. - Use the ear drops at night after completing the antibiotic regimen, starting three days before the next appointment. - Insert three to four drops in each affected ear, and place a small piece of cotton to prevent leakage. - Schedule and complete laboratory tests before the upcoming July 12 appointment. - Monitor for symptoms of ear infection or increased pain and seek care sooner if symptoms worsen. Follow-up 2 weeks Medications: New carbamide peroxide 6.5% (Debrox) 5 drps otic (ears) DAILY 3 days 15 mL 0RF amoxicillin 500 mg PO Q8H 5 days 15 caps 0RF
--- OUTSIDE RECORDS SUMMARY | 2024-02-21 15:34 | XMS_ITS | Clinical Summary ---
Author Organization Unknown Care Team Providers Care Hoop Bender Tank Name Role Phone RACHANA PYLE, MADHU Unavailable Unavailable MARGARITO FONG, TORY Unavailable Unavailable Payers Payer Name Policy Type Policy Number Effective Date Expira tion Date ON DEMAND MEDICARE - [place] BILLING - AB[place] [id number] [place] [id number] Problems Condition Name Condition Details Condition Category Status Onset Date Resolution Date Last Treatment Date Treating Clinician Comments POST-TRAUMAT IC STRESS DISORDER, UNSPECIFIED Active 10-24 00:00: 00 GENERALIZED ANXIETY DISORDER Active 2022-02 00:00: 00 MILD INTELLECTUAL DISABILITIES Active 2022-02 00:00: 00 LOWER IN SUPERVISOR (CURRENT) USE OF ASPIRIN Active 09-17 00:00: [...] mg chewable tablet 2018-02 00:00: 00 Yes [id number] 81 mg DAILY 81 mg DAILY (route: oral) Med Classific ation: Hematolog ical Agents carbamazepi ne 200 mg tablet 10-27 00:00: 00 06-03 14:56 :58.7 4 No [id number] 200 mg BEDTIME 200 mg BEDTIME (route: oral) Med Classific ation: Central Nervous System Agents fluoxetine 40 mg capsule 10-24 00:00: 00 01-26 23:59 :00 No [id number] 40 capsule DAILY 40 capsule DAILY (route: oral) Med Classific ation: Central Nervous System Agents fluoxetine 20 mg capsule 04-05 00:00: 00 01-26 23:59 :00 No [id number] 20 capsule EVERY AM 20 capsule EVERY AM (route: oral) Alternate Route: By mouth. Med Classific ation: Central Nervous System Agents lorazepam 0.5 mg tablet 10-24 00:00: 00 01-26 23:59 :00 No [id number] 0.5 mg 2 TIMES DAILY 0.5 mg 2 TIMES DAILY (route: oral) Med Classific ation: Central Nervous System Agents quetiapine 100 mg tablet 10-24 00:00: 00 01-26 23:59 :00 No [id number] 100 mg BEDTIME 100 mg BEDTIME (route: oral) Med Classific ation: Central Nervous System Agents quetiapine 25 mg tablet 04-05 00:00: 00 Yes [id number] 25 mg 2 TIMES DAILY 25 mg 2 TIMES DAILY (route: oral) Alternate Route: By mouth. Med Classific ation: Central Nervous System Agents simvastatin 20 mg tablet 08 00:00: 00 Yes [id number] 20 mg BEDTIME 20 mg BEDTIME (route: oral) Med Classific ation: Cardiovas cular Therapy Agents Tegretol XR 200 mg tablet,exte nded release 406 00:00: 00 Yes [id number] 200 mg BEDTIME 200 mg BEDTIME (route: oral) Med Classific ation: Central Nervous System Agents quetiapine 200 mg tablet 2021-02 00:00: 00 04-25 23:59 :00 No [id number] 200 mg BEDTIME 200 mg BEDTIME (route: oral) Med Classific ation: Central Nervous System Agents Lexapro 5 mg tablet 2021-02 00:00: 00 02-02 23:59 :00 No [id number] 5 mg DIRECTED 5 mg DIRECTED (route: oral) Med Classific ation: Central Nervous System Agents Lexapro 5 mg tablet 2021-02 00:00: 00 08-19 23:59 :00 No [id number] 10 mg DAILY 10 mg DAILY (route: oral) Med Classific ation: Central Nervous System Agents Ativan 0.5 mg tablet 2021-02 00:00: 00 08-19 23:59 :00 No [id number] 0.5 mg 2 TIMES DAILY 0.5 mg 2 TIMES DAILY (route: oral) Med Classific ation: Central Nervous System Agents fluoxetine 40 mg capsule 2021-02 2- 00:00: 00 05-05 23:59 :00 No [id number] 40 capsule DAILY 40 capsule DAILY (route: oral) Med Classific ation: Central Nervous System Agents quetiapine 200 mg tablet 2021-02 2- 00:00: 00 05-28 23:59 :00 No [id number] 200 mg BEDTIME 200 mg BEDTIME (route: oral) Med Classific ation: Central Nervous System Agents lorazepam 0.5 mg tablet 30 00:00: 00 Yes [id number] 1.5 tablet 2 TIMES DAILY 1.5 tablet 2 TIMES DAILY (route: oral) Med Classific ation: Central Nervous System Agents Lexapro 10 mg tablet 30 00:00: 00 04-09 23:59 :00 No [id number] 1 tablet DAILY 1 tablet DAILY (route: oral) Med Classific ation: Central Nervous System Agents quetiapine 200 mg tablet 7-14 00:00: 00 08-22 23:59 :00 No [id number] 1 tablet BEDTIME 1 tablet BEDTIME (route: oral) Med Classific ation: Central Nervous System Agents Lexapro 20 mg tablet 3-04 00:00: 00 Yes [id number] 20 mg EVERY AM 20 mg EVERY AM (route: oral) Med Classific ation: Central Nervous System Agents quetiapine 200 mg tablet 0 4-24 00:00: 00 Yes [id number] 200 mg BEDTIME 200 mg BEDTIME (route: [...] AWARENESS FOR SAFETY AND WILL NOTIFY CLINICAL DREDGE DECKHAND AND PHYSICIAN/PROVIDER WITH ANY CHANGE IN CONDITION. [code = SKILLED NURSE WILL MAINTAIN SITUATIONAL AWARENESS FOR SAFETY AND WILL NOTIFY CLINICAL DREDGE DECKHAND AND PHYSICIAN/PROVIDER WITH ANY CHANGE IN CONDITION.] [...] A WEEK AND PRE-POUR MEDICATIONS TILL NEXT INTERMEDIATE VISIT PER MEDICATION LIST. [code = SKILLED NURSE TO ADMINISTER MEDICATIONS TWICE A WEEK AND PRE-POUR MEDICATIONS TILL NEXT INTERMEDIATE VISIT PER MEDICATION LIST.] Future Scheduled Test [...] BE HELD AND STORED IN LOCKBOX] Goal 2023-11-22 Patient Goal - TAKING MY MED S Goal 2023-03-27 Patient Goal - TAKING MY MED S Goal 2023-01-26 Patient Goal - TAKING MY MED S Goal 2024-01-08 Patient Goal - TAKING MY MED S Goal 2023-09-23 Patient Goal - TAKING MY MED S Goal 2023-07-26 Patient Goal - TAKING MY MED S Goal 2023-05-29 Patient Goal - TAKING MY MED S Goal Provider Goal - A PLAN OF CARE WILL BE ESTABLISHED THAT MEETS PATIENT'S INTERMEDIATE NEEDS AND INCLUDES PATIENT GOAL FOR HOME [...] WILL BE STORED IN LOCKBOX FOR SAFETY. Reason for Visit INDEPENDENT IN THE COMMUNITY Encounters Start Date/Time End Date/Time Encounter Type Admission Type Attending [facility] Care Department Encounter ID Discharge Date Discharge Status Discharge Condition Discharge Reason Percent Goals Met 2022-12-02 00:00:00 2024-01-08 00:00:00 Outpatient RECERTIFIC TORY HOOKS [facility] [id number] 2024-01-08 00:00:00 DISCHARGED /TRANSFERR ED TO A [facility] FOR INPATIENT CARE INDEPENDEN T IN THE COMMUNITY TRANSFER TO ANOTHER [facility] ( ONLY) 12.00
== END 2024-02-21 13:31 | disposition home or self-care (01) ==
PROVIDERS: PCP Internal Medicine; Visit Provider Internal Medicine
DX: H92.02 Otalgia, left ear (principal); H61.23 Impacted cerumen, bilateral; D50.0 Iron deficiency anemia secondary to blood loss (chronic); E78.9 Disorder of lipoprotein metabolism, unspecified

== ENCOUNTER → 2024-02-21 13:00 | Outpatient (BNVA) | payer MEDICARE, MEDICAID, SELFPAY | PROVIDERS: PCP Internal Medicine; Visit Provider Internal Medicine | DX: H92.02 Otalgia, left ear (principal); H61.23 Impacted cerumen, bilateral; D50.0 Iron deficiency anemia secondary to blood loss (chronic); E78.9 Disorder of lipoprotein metabolism, unspecified; Z91.81 History of falling | CPT/HCPCS: 96127; 99212 ==

== ENCOUNTER 2024-05-22 13:17 | Outpatient (AMB) | payer MEDICARE, MEDICAID, SELFPAY ==
--- NOTE | 2024-05-22 13:29 | A.OFFVIS_ITS ---
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 Attends a day program 3xwk. Bowl once a week. Doing well with no dyeing machine back tender concerns. She denies vaginal itching and irritation. Never sexually active. She tries to eat healthy and stays active. History of hysterectomy due to large benign tumor. Mammogram: 2023. [facility] Medical History Intellectual disability History of anxiety High cholesterol Surgical History History of total hysterectomy Family History Father History of hip replacement Mother Heart attack Sister No problems noted. Social History Household Members Other:: father Housing: House Alcohol intake: never Patient Tobacco Use Status: Never used Tobacco e-Cigarette/Vaping Use: Never Used Current occupational status: disabled Cognitive needs: Yes Hearing needs: No Vision needs: No Female Reproductive History Menstrual Menopause type: surgical Total pregnancies: 0 Date of Mammogram: 10/02/23 (Birad 3) Review of Systems Const All systems reviewed & are unremarkable except as noted in HPI and below Reports as per HPI Eyes Reports no additional complaints ENT Reports no additional complaints Card Reports no additional complaints Resp Reports no additional complaints GI Reports as per HPI and Reports no additional complaints Reports as per HPI Musc Reports no additional complaints Skin/Breast Reports as per HPI Neuro Reports no additional complaints Psych Reports no additional complaints Endo Reports no additional complaints Saravanan/Lymph Reports no additional complaints Aller/Immun Reports no additional complaints Physical Exam Vital Signs: Last Vital Signs BP 92/62 05/22/24 13:43 BMI result Body Mass Index 32.6 Const General: cooperative, healthy appearing, no acute distress, well developed and alert Orientation/consciousness: patient oriented x3 HEENT Head: Yes normal to inspection Eyes General: appearance normal, both eyes and all related structures Neck Neck: Yes normal visual inspection Thyroid: Thyroid normal Chest Chest palpation & inspection: normal inspection of the chest and other (no puckering, dimpling, peau de orange, retraction, discharge, masses) Breast/axilla inspection: normal inspection of the breasts Breast/axilla palpation: normal palpation of the breasts Resp Effort & Inspection: normal respiratory effort GI Inspection: Yes normal to inspection Palpation (GI): Soft to palpation Rectal Exam - Female: deferred General: Yes bladder normal to palpation External Female Exam: normal external appearance and normal appearance of the urethra Speculum Exam - Vagina: normal appearance of the vagina, normal palpation (Small opening), normal vaginal discharge and vagina atrophic (moderate) Speculum Exam - Cervix: Cervix absent (Vaginal cuff no lesions or nodules) Bimanual exam- vagina & uterus: normal bimanual exam, normal palpation (Small opening), bladder normal to palpation and uterus absent Bimanual Exam- Adnexa, other: no masses Skin General skin exam: no rashes or lesions noted Rashes: no rashes Neuro General: patient oriented x3 Cognition (Neuro): normal cognition Extrem General: Yes normal to inspection Psych Attitude: cooperative Thought process: Normal thought process present Assessment & Plan Assessment & Plan (1) Encounter for routine gynecological examination: Code(s): Z01.419 - Encounter for gynecological examination (general) (routine) without abnormal findings Category: Medical Qualifiers: Gynecological examination findings: abnormal findings ABSENT Qualified Code(s): Z01.419 - Encounter for gynecological examination (general) (routine) without abnormal findings Plan Discussed: Mammogram yearly. Maintain a healthy lifestyle including a well balanced diet and routine exercise. Patient verbalizes understanding and agrees to the plan of care. She was given opportunity to ask questions and all questions were answered to the best of my ability. RTO in one year for annual dyeing machine back tender examination. This note is constructed using voice recognition software. While every effort has been made to ensure accuracy, supervisor multifocal lens errors may have been included. Coding Level of Care Code Est Pt Prev Care 40-64y(43657) Diagnoses Encounter for gynecological examination without abnormal finding Z01.419 Gynecological examination findings: abnormal findings ABSENT
[2024-05-22 13:43] VITALS: BP 92/62; BMI 32.6
== END 2024-05-22 14:20 | disposition home or self-care (01) ==
LOC: HO.HWS 13:17
PROVIDERS: PCP Internal Medicine; Visit Provider Advanced Practice Midwife
DX: Z01.419 Encounter for gynecological examination (general) (routine) without abnormal findings (principal)
CPT/HCPCS: G0101

== ENCOUNTER → 2024-05-22 13:17 | Outpatient (BNVA) | payer MEDICARE, MEDICAID, SELFPAY | PROVIDERS: PCP Internal Medicine; Visit Provider Advanced Practice Midwife | DX: Z01.419 Encounter for gynecological examination (general) (routine) without abnormal findings (principal) | CPT/HCPCS: G0101 ==

== ENCOUNTER 2024-07-03 09:51 | Outpatient (REF) | payer MEDICARE, MEDICAID, SELFPAY ==
[2024-07-03 13:24] LABS: MANUAL DIFF FLAG NO
[2024-07-03 13:32] LABS: Basophils Percent Auto 0.6 % (0-2); Eosinophils Absolute Auto 0.3 X10*3/uL (0.0-0.4); Eosinophils Percent Auto 7.1 % (0-4); Hematocrit 35.3 % (37.0-47.0); Hemoglobin 11.6 g/dl (12.0-16.0); Imm Gran Abs Auto 0.01 X10*3/uL (0.00-0.03); Imm Gran Pct Auto 0.3 % (0.0-0.4); Lymphocytes Absolute Auto 1.5 X10*3/uL (1.2-4.9); Lymphocytes Percent Auto 42.3 % (20-40); Mean Corpuscular HGB Conc 32.9 g/dl (31.0-35.0); Mean Corpuscular Hemoglobin 33.9 pg (27.0-33.0); Mean Corpuscular Volume 103.2 fL (80.0-98.0); Mean Platelet Volume 9.4 fL (9.4-12.3); Monocytes Absolute Auto 0.3 X10*3/uL (0.1-1.2); Monocytes Percent Auto 7.1 % (2-11); Neutrophils Absolute Auto 1.5 x10*3/uL (2.0-8.3); Neutrophils Percent Auto 42.6 % (45-73); Platelet Count 143 X10*3/uL (160-400); Red Blood Count 3.42 X10*6/uL (4.20-5.50); Red Cell Distribution Width 13.2 % (11.0-16.0); White Blood Count 3.5 X10*3/uL (4.8-10.8)
[2024-07-03 13:54] LABS: Alanine Aminotransferase 13 U/L (0-31); Albumin Level 3.8 g/dL (3.5-5.0); Alkaline Phosphatase 85 U/L (39-117); Anion Gap 11 (12-20); Aspartate Amino Transferase 32 U/L (5-31); Bilirubin Total 0.2 mg/dL (0.0-1.0); Blood Urea Nitrogen 17 mg/dL (9-16); Calcium 8.4 mg/dL (8.4-10.2); Carbon Dioxide 28 mmol/L (22-29); Chloride 105 mmol/L (96-108); Cholesterol 222 mg/dL (<200); Estimated Glomerular Filt Rate > 60; Glucose Fasting 96 mg/dL (60-99); HDL Cholesterol 57 mg/dL (>40); LDL Cholesterol Calculated 144 mg/dL (<100); Potassium 4.5 mmol/L (3.3-5.1); Sodium 139 mmol/L (135-145); Total Protein 6.8 g/dL (6.5-8.0); Triglycerides 107 mg/dL (<150)
== END 2024-07-03 09:52 | disposition home or self-care (01) ==
LOC: HO.HMGCLDS 09:51
PROVIDERS: PCP Internal Medicine; Visit Provider Internal Medicine
DX: E78.9 Disorder of lipoprotein metabolism, unspecified (principal); E66.09 Other obesity due to excess calories; Z68.33 Body mass index [BMI] 33.0-33.9, adult
CPT/HCPCS: 36415; 80053; 80061; 85025

== ENCOUNTER 2024-07-12 10:59 | Outpatient (AMB) | payer MEDICARE, MEDICAID, SELFPAY ==
[2024-07-12 11:01] VITALS: BP 114/82; PULSE 81; TEMP 36.6; O2SAT 96; BMI 33.5
--- NOTE | 2024-07-12 11:01 | A.OFFPC_ITS ---
Vital Signs 07/12/24 11:01 Height 5 ft 4 in Weight 195 lb BMI 33.5 BP 114/82 Blood Pressure Location Rt brachial Position Sitting Pulse 81 Pulse Source Pulse Oximeter Temp 97.8 F Temp Source Oral Pulse Oximetry (%) 96 Oxygen Delivery Method Room Air Intake Visit Reasons: Annual PE Allergies No Known Allergies Allergy (Verified 05/22/24 13:45) Medication List - Last Reconciled 07/12/24 by Paige Gonsalez MD acetaminophen (Tylenol) 325 mg PO ONCE PRN 30 days carbamazepine mg PO escitalopram oxalate 20 mg PO DAILY lorazepam 0.5 mg PO TID PRN quetiapine mg PO quetiapine 200 mg PO BEDTIME sennosides-docusate sodium 8.6-50 mg (Senokot-S) 1 tab-cap PO BEDTIME 90 days simvastatin 20 mg PO BEDTIME Tobacco use date assessed: 02/21/24 Dental Screening Dental Screen Date: 02/21/24 HPI Annual PE HPI Details History of Present Illness - The patient is a 49 year old female wi th learning disability, lipid disorder obesity, psychiatric illness, presenting for a physical examination. With a staff member - The last OBGYN visit was in May at [facility]. - Laboratory tests conducted on July 03 revealed slight anemia with a stable hemoglobin level of 11.6. - Kidney functions and electrolytes are reported to be normal. - Liver enzymes are stable, and choleste rol levels are slightly worse than before but within acceptable ranges. - The patient is currently on simvastati n for hyperlipidemia and is advised to continue the medication. - The patient's tetanus vaccination was last administered in 2018. Medical History: - Anemia - Hyperlipidemia - learning disability - obesity - psychiatric illness Social History: - The patient adheres to a daily diet re gimen. As per staff Health Maintenance - Tetanus vaccination last received in . - Regular monitoring and management of c holesterol with simvastatin. - Recent laboratory work showed stable h emoglobin and normal kidney functions. Patient Instructions - Continue taking simvastatin as prescri bed - Maintain current diet regimen Review of Systems - General: No fever no chills - Neurological: No headaches no dizzin ess - Ear nose throat: No sore throat no hearing difficulty no ear pain - Cardiovascular: No syncope, no chest pain, no palpitations - Gastrointestinal: No nausea vomiting or diarrhea - Genitourinary: No dysuria - Skin: No new complaints Physical Exam General: Cooperative, healthy appearing, comfortable, no acute distress Orientation: Patient oriented x3 Head: Normal to inspection Ears: Within normal limit visually Nose: Normal external nose present Face and sinus: Normal facial exam Eyes: Appearance normal, extraocular movement intact pupils reactive Neck: Normal visual inspection and supple Respiratory: Normal respiratory effort and able to speak in complete sentences. Clear to auscultation, no stridor Cardiovascular: S1 and S2 RRR Breast exam through OBGYN GI: Normal to inspection. Soft to palpation and nontender Skin: Turgor normal, no acute findings Neuro: Patient oriented x3, motor sensory intact, balance intact Extremities: Normal to inspection, range of motion intact [facility] Medical History Intellectual disability History of anxiety High cholesterol Surgical History History of total hysterectomy Family History Father History of hip replacement Mother Heart attack Sister No problems noted. Social History Household Members Other:: father Housing: House Alcohol intake: never Patient Tobacco Use Status: Never used Tobacco e-Cigarette/Vaping Use: Never Used Current occupational status: disabled Cognitive needs: Yes Hearing needs: No Vision needs: No Questionnaire PHQ-9 Over the last 2 weeks, how often have you been bothered by any of the following problems? 1. Little interest or pleasure in doing things: more than half the days 2. Feeling down, depressed, or hopeless: not at all 3. Trouble falling or staying asleep, or sleeping too much: several days 4. Feeling tired or having little energy: several days 5. Poor appetite or overeating: not at all 6. Feeling bad about yourself - or that you are a failure or have let yourself or your family down: not at all 7. Trouble concentrating on things, such as reading the newspaper or watching television: not at all 8. Moving or speaking so slowly that other people could have noticed. Or the opposite - being so fidgety or restless that you have been moving around a lot more than usual: not at all 9. Thoughts that you would be better off or of hurting yourself in some way: not at all Total score: 4 Depression Screening Interpretation: Negative Depression Screening Done: Yes 38028 - PHQ-9 Billing: Yes Source: Developed by Drs. Yusef Hoffmann, Robin Núñez and colleagues, with an educational sukumar from [employer]. Thrive Questionnaire Date Thrive assessed: 02/21/24 Do you have trouble paying for medicines?: No Do you have trouble getting transportation to medical appointments?: No Do you have trouble paying your heating and electricity bill?: No Do you have trouble taking care of your child, family member or friend?: No Do you have trouble with day-to-day activities such as bathing, preparing meals, shopping, managing finances, etc.?: No Are you currently unemployed and looking for a job?: No Are you interested in more education?: No Please select the resources that you would like help with: None Currently or been in a relationship where the following occur: No concerns reported THRIVE Score: 0 AUDIT C Alcohol Use Questionnaire (AUDIT-C) 1. How often do you have a drink containing alcohol?: Never Total Score: 0 MARIANNE-7 AMB Questionnaire MARIANNE-7 Date MARIANNE - 7 assessed: 02/21/24 Feeling nervous, anxious, or on edge: 1 = Several days Not being able to stop or control worryin = Several days Worrying too much about different things: 1 = Several days Trouble relaxin = Several days Being so restless that it is hard to sit still: 1 = Several days Becoming easily annoyed or irritable: 1 = Several days Feeling afraid as if something awful might happen: 0 = Not at all Total MARIANNE-7 score (0-4 normal; 5-9 mild; 10-14 moderate; 15-21 severe): 6 Source: Developed by Drs. Yusef Hoffmann, Robin Núñez and colleagues, with an educational sukumar from [employer]. Physical exam (Primary Care) Vital Signs: Last Vital Signs Temp 97.8 F 07/12/24 11:01 Pulse 81 07/12/24 11:01 BP 114/82 07/12/24 11:01 Pulse Ox 96 07/12/24 11:01 Oxygen Delivery Method Room Air 07/12/24 11:01 BMI result Body Mass Index 33.5 Tobacco/Smoking Status: Tobacco use Status Tobacco use date assessed 02/21/24 07/12/24 11:06 Patient Tobacco Use Status Never used Tobacco 07/12/24 11:06 e-Cigarette/Vaping Use Never Used 07/12/24 11:06 PHQ-9: PHQ-9 Score PHQ-9: Total score 4 07/12/24 11:06 Depression Screening Interpretation: Negative Thrive Assessment: Date of Thrive Assessment Date Thrive assessed 02/21/24 07/12/24 11:06 Currently or been in a relationship where the following occur: No concerns reported Coding Level of Care Code Est Pt Level 3 (51681) Est Pt Prev Care 40-64y(16645) Diagnoses Encounter for general adult medical examination with abnormal findings Z00.01 Anemia in other chronic diseases classified elsewhere D63.8 Anemia type: other cause Other causes of anemia: chronic disease, other Lipid disorder E78.9 Class 1 obesity due to excess calories with serious comorbidity and body mass index (BMI) of 33.0 to 33.9 in adult E66.09; Z68.33 Obesity classification: adult class 1 (BMI 30 - 34.9) Serious obesity comorbidity presence: with serious comorbidity Body mass index: BMI 33.0-33.9 Intellectual disability F79 Additional Codes PHQ-9 - 97774 - PHQ-9 Billing: Yes ([id number]) Assessment & Plan Assessment & Plan (1) Encounter for general adult medical examination with abnormal findings: Code(s): Z00.01 - Encounter for general adult medical examination with abnormal findings Category: Medical (2) Anemia: Code(s): D64.9 - Anemia, unspecified Category: Medical Qualifiers: Anemia type: other cause Other causes of anemia: chronic disease, other Qualified Code(s): D63.8 - Anemia in other chronic diseases classified elsewhere (3) Lipid disorder: Code(s): E78.9 - Disorder of lipoprotein metabolism, unspecified Category: Medical (4) Obesity due to excess calories: Code(s): E66.09 - Other obesity due to excess calories Category: Medical Qualifiers: Obesity classification: adult class 1 (BMI 30 - 34.9) Serious obesity comorbidity presence: with serious comorbidity Body mass index: BMI 33.0-33.9 Qualified Code(s): E66.09 - Other obesity due to excess calories; Z68.33 - Body mass index [BMI] 33.0-33.9, adult (5) Intellectual disability: Code(s): F79 - Unspecified intellectual disabilities Category: Medical Plan History of Present Illness - The patient is a 49 year old female with learning disability, lipid disorder obesity, psychiatric illness, presenting for a physical examination. With a staff member - The last OBGYN visit was in May at [facility]. - Laboratory tests conducted on July 03 revealed slight anemia with a stable hemoglobin level of 11.6. - Kidney functions and electrolytes are reported to be normal. - Liver enzymes are stable, and cholesterol levels are slightly worse than before but within acceptable ranges. - The patient is currently on simvastatin for hyperlipidemia and is advised to continue the medication. - The patient's tetanus vaccination was last administered in 2018. Medical History: - Anemia - Hyperlipidemia - learning disability - obesity - psychiatric illness Social History: - The patient adheres to a daily diet regimen. As per staff Health Maintenance - Tetanus vaccination last received in 2018. - Regular monitoring and management of cholesterol with simvastatin. - Recent laboratory work showed stable hemoglobin and normal kidney functions. Patient Instructions - Continue taking simvastatin as prescribed - Maintain current diet regimen Follow-up six-month, labs are needed in 5 months order is in Physical exam 1 year Orders: Orders Complete Blood Count Auto Diff 5 Months D63.8 - Anemia in other chronic diseases classified elsewhere, E66.09 - Other obesity due to excess calories, E78.9 - Disorder of lipoprotein metabolism, unspecified, F79 - Unspecified intellectual disabilities, Z00.01 - Encounter for general adult medical examination with abnormal findings, Z68.33 - Body mass index [BMI] 33.0-33.9, adult Comprehensive Met. Panel 5 Months D63.8 - Anemia in other chronic diseases classified elsewhere, E66.09 - Other obesity due to excess calories, E78.9 - Disorder of lipoprotein metabolism, unspecified, F79 - Unspecified intellectual disabilities, Z00.01 - Encounter for general adult medical examination with abnormal findings, Z68.33 - Body mass index [BMI] 33.0-33.9, adult Ferritin 5 Months D63.8 - Anemia in other chronic diseases classified elsewhere, E66.09 - Other obesity due to excess calories, E78.9 - Disorder of lipoprotein metabolism, unspecified, F79 - Unspecified intellectual disabilities, Z00.01 - Encounter for general adult medical examination with abnormal findings, Z68.33 - Body mass index [BMI] 33.0-33.9, adult LDL Cholesterol Direct 5 Months D63.8 - Anemia in other chronic diseases classified elsewhere, E66.09 - Other obesity due to excess calories, E78.9 - Disorder of lipoprotein metabolism, unspecified, F79 - Unspecified intellectual disabilities, Z00.01 - Encounter for general adult medical examination with abnormal findings, Z68.33 - Body mass index [BMI] 33.0-33.9, adult
== END 2024-07-12 11:29 | disposition home or self-care (01) ==
LOC: HO.HMCC 11:00
PROVIDERS: PCP Internal Medicine; Visit Provider Internal Medicine
DX: Z00.00 Encounter for general adult medical examination without abnormal findings (principal); D63.8 Anemia in other chronic diseases classified elsewhere; E66.09 Other obesity due to excess calories; Z68.33 Body mass index [BMI] 33.0-33.9, adult; E78.9 Disorder of lipoprotein metabolism, unspecified; F79 Unspecified intellectual disabilities

== ENCOUNTER → 2024-07-12 10:59 | Outpatient (BNVA) | payer MEDICARE, MEDICAID, SELFPAY | PROVIDERS: PCP Internal Medicine; Visit Provider Internal Medicine | DX: Z00.01 Encounter for general adult medical examination with abnormal findings (principal); E78.9 Disorder of lipoprotein metabolism, unspecified; D63.8 Anemia in other chronic diseases classified elsewhere; F79 Unspecified intellectual disabilities; E66.09 Other obesity due to excess calories; Z68.33 Body mass index [BMI] 33.0-33.9, adult; Z71.3 Dietary counseling and surveillance | CPT/HCPCS: 96127; 99396 ==

== ENCOUNTER 2024-09-19 15:33 | Outpatient (AMB) | payer MEDICARE, MEDICAID, SELFPAY ==
--- NOTE | 2024-09-19 15:40 | A.OFFVIS_ITS ---
Intake Visit Reasons: 1 Year SZ disorder Allergies No Known Allergies Allergy (Verified 05/22/24 13:45) HPI Comments Details: 49 yo woman with chronic static encepyhalopathy or unknown cause, associated intellectual disability was seen at [facility] in June of 2022 with an episode of full-blown shaking of the upper and lower extremity for a few minutes followed by lethargy. [facility] Medical History (Updated 09/19/24 @ 15:43 by Cat Gonsalez MD) Anxiety HLD (hyperlipidemia) Seizure disorder Learning disabilities Chronic static encephalopathy Intellectual disability History of anxiety High cholesterol Surgical History History of total hysterectomy Family History Father History of hip replacement Mother Heart attack Sister No problems noted. Social History Household Members Other:: father Housing: House Alcohol intake: never Patient Tobacco Use Status: Never used Tobacco e-Cigarette/Vaping Use: Never Used Current occupational status: disabled Cognitive needs: Yes Hearing needs: No Vision needs: No Assessment & Plan Assessment & Plan (1) Seizure disorder: Comment: Routine EEG at off in 2022: WNL CT brain WO at [facility] in 2022: Mild FP cortical atrophy CT C spine at [facility] in June 2022: multilevel spondyloarthritis. 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 Continue with psychiatrist. Coding Level of Care Code Est Pt Level 3 (64467) Diagnoses Seizure disorder G40.909 Intellectual disability F79 Chronic static encephalopathy G93.49
== END 2024-09-19 15:52 | disposition home or self-care (01) ==
LOC: HO.HSM 15:34
PROVIDERS: PCP Internal Medicine; Referring Provider Internal Medicine; Visit Provider Psychiatry & Neurology Neurology
DX: G40.909 Epilepsy, unspecified, not intractable, without status epilepticus (principal); F79 Unspecified intellectual disabilities; G93.49 Other encephalopathy
CPT/HCPCS: 99213

== ENCOUNTER → 2024-09-19 15:33 | Outpatient (BNVA) | payer MEDICARE, MEDICAID, SELFPAY | PROVIDERS: PCP Internal Medicine; Referring Provider Internal Medicine; Visit Provider Psychiatry & Neurology Neurology | DX: G40.909 Epilepsy, unspecified, not intractable, without status epilepticus (principal); F79 Unspecified intellectual disabilities; G93.49 Other encephalopathy | CPT/HCPCS: 99212 ==

== ENCOUNTER 2024-10-03 10:39 | Outpatient (REF) | payer MEDICARE, MEDICAID, SELFPAY ==
--- NOTE | ~2024-10-03 | MM_ITS ---
EXAMINATIONS: 1. MM DIAGNOSTIC DIGITAL BREAST TOMOSYNTHESIS, BILATERAL 2. Targeted ultrasound of the left breast CLINICAL INFORMATION: This is a 1 year follow-up of complicated cyst of the left breast at 12 o'clock position 5 cm from the nipple. This was first described on the callback workup on September 21, 2022. COMPARISON: Comparison made to multiple prior, most recent bilateral mammogram and left breast ultrasound on October 02, 2023, and most remote August 15, 2022. TECHNIQUE: Digital breast tomosynthesis is performed in both the craniocaudal and mediolateral oblique views along with computer-aided detection (CAD). Synthesized 2D images are generated from the tomosynthesis. FINDINGS: BREAST COMPOSITION: There are scattered areas of fibroglandular density (ACR BI-RADS breast composition Category b). RIGHT BREAST: No significant masses, suspicious calcifications or other abnormalities are seen. LEFT BREAST: Previously seen approximately 0.5 cm round mass in the upper breast at approximately 4 cm from the nipple is not significantly changed from August 2022 (MLO 47/81, XCCL 36/73). No new masses, suspicious calcifications or other abnormalities are seen. Targeted ultrasound of the left breast was performed at the location of the previously described sonographic finding. The survey shows a 0.5 x 0.5 x 0.5 cm complicated cyst at 12 o'clock position 5 cm from the nipple. No internal vascularity demonstrated with color Doppler evaluation. Sonographic findings are stable from multiple prior studies as far back as September 2022. MM/MM tomosynthesis diagnostic BI IMPRESSION: RIGHT BREAST: Negative, no mammographic evidence of malignancy. Normal interval follow-up is recommended in 12 months. LEFT BREAST: Mammographic finding correlates with a 0.5 cm complicated cyst at 12 o'clock position 5 cm from the nipple, stable from September 2022, is now considered a benign finding and no further dedicated imaging follow-up needed. Benign, no mammographic evidence of malignancy. Normal interval follow-up is recommended in 12 months. ASSESSMENT: BI-RADS 2 - Benign Findings RECOMMENDATION: 1 year F/U Results were provided to the patient at time of visit by the technologist. This patient's information was entered into a reminder system with a target due date for their next mammogram. Electronically signed by: Hardik De Souza MD 10/03/2024 11:34 AM EDT RP
== END 2024-10-03 10:40 | disposition home or self-care (01) ==
LOC: HO.MAMMO 10:39
PROVIDERS: PCP Internal Medicine; Visit Provider Internal Medicine
DX: R92.2 Inconclusive mammogram (principal)
CPT/HCPCS: 76642; 77062; 77066

== ENCOUNTER → 2024-10-03 11:00 | Outpatient (BNV) | payer MEDICARE, MEDICAID, SELFPAY | PROVIDERS: PCP Internal Medicine; Visit Provider Radiology Body Imaging | DX: N60.02 Solitary cyst of left breast (principal) | CPT/HCPCS: 76642; 77066; G0279 ==

== ENCOUNTER 2024-10-21 11:21 | Outpatient (AMB) | payer MEDICARE, MEDICAID, SELFPAY ==
--- NOTE | 2024-10-21 11:34 | A.OFFVIS_ITS ---
Vital Signs 10/21/24 11:37 Height 5 ft 4 in Weight 188 lb 2 oz BMI 32.3 Intake Visit Reasons: New Pt- Tinea unguium Intake Note: Stephy is a 49 year old female who presents today as a new patient for an evaluation of her bilateral Tinea unguium . Patient reports no pain at this time. Allergies No Known Allergies Allergy (Verified 10/21/24 11:35) Medication List - Last Reconciled 10/21/24 by Patrica Fairchild DPM acetaminophen (Tylenol) 325 mg PO ONCE PRN 30 days carbamazepine mg PO ciclopirox 8% 1 appl topical BEDTIME 4 weeks escitalopram oxalate 20 mg PO DAILY lorazepam 0.5 mg PO TID PRN quetiapine mg PO quetiapine 100 mg PO BEDTIME sennosides-docusate sodium 8.6-50 mg (Senokot-S) 1 tab-cap PO BEDTIME 90 days simvastatin 20 mg PO BEDTIME HPI Comments Details: The patient is a 49-year-old female with a past medical history as seen below presenting with thickened, elongated, and discolored toenails X 8. Patient was accompanied by her early childhood teacher assistant. She stay she has a history of nail infections due to picking of the nail and skin. The patient is unable to tend to her feet and nails due to her past medical history. Patient currently lives in a prison. Additionally, the patient has hammertoe deformities to toes 2 through 5., which causes the dystrophic shape of the nails. She denies any other pedal concerns. Patient states she aches experiences pain to the nails when they are thickened. She denies any current nausea, vomiting, fever, or chills. [facility] Medical History (Updated 10/21/24 @ 11:56 by Patrica Fairchild DPM) Nail dystrophy Anxiety HLD (hyperlipidemia) Seizure disorder Learning disabilities Chronic static encephalopathy Intellectual disability History of anxiety High cholesterol Surgical History History of total hysterectomy Family History Father History of hip replacement Mother Heart attack Sister No problems noted. Social History Household Members Other:: father Housing: House Alcohol intake: never Patient Tobacco Use Status: Never used Tobacco e-Cigarette/Vaping Use: Never Used Current occupational status: disabled Cognitive needs: Yes Hearing needs: No Vision needs: No Review of Systems Const Details: - Neurological: Denies numbness or tingling in the feet. - Musculoskeletal: Denies pain in the feet except for specific areas of thickened nail when palpated. All systems reviewed & are unremarkable except as noted in HPI and below Physical Exam Vital Signs: BMI result Body Mass Index 32.3 Extrem Other: Bilateral lower extremity focused physical exam: Derm: Thickened and elongated toenails noted to toes 2 through 5 bilaterally. Noted previous total nail avulsions of bilateral halluces. No open wounds, abrasions, or lesions noted. No clinical signs of infection. Vascular: DP/PT pulses palpable. Capillary refill time less than 3 seconds. Temperature gradient warm to warm. No edema noted. No varicosities noted. Neuro: Protective sensation is grossly intact. MSK: Pain on palpation to the thickened toenails, especially to the right 2nd toenail. Range of motion of the forefoot within normal limits. No crepitus noted. Range of motion of the hindfoot and ankle within normal limits. Hammertoe deformities noted to toes 2 through 5 bilaterally. Office Procedures AMB Debridement/Avulsion Podia Details: Debrided toenails 2 through 5 bilaterally using a nail Nipper with no incidents. 99111-Qxekesxjfgm of Nail 6+ Procedure code (CPT) selection complete Results Reviewed Results Reviewed: Laboratory Tests 07/03/24 10:20 AST 32 H ALT 13 Assessment & Plan Assessment & Plan (1) Onychomycosis: Code(s): B35.1 - Tinea unguium Category: Medical (2) Nail dystrophy: Code(s): L60.3 - Nail dystrophy Category: Medical Plan Patient was informed and verbally consented to the use of an ambient scribe for clinic note documentation during this visit. I discussed with the patient and her early childhood teacher assistant the use of a topical antifungal treatment for onychomycosis, emphasizing its application to prevent the spread of infection. We also talked about the importance of regular nail care to prevent complications. Additionally, I advised on the use of a Band-Aid and antibiotic ointment for any future nail abrasions to prevent worsening. 1. Onychomycosis Prescribed ciclopirox to be applied as needed to the toenails. Advised and recommended continuation of routine nail care. Debrided toenails 2 through 5 bilaterally with a nail Nipper with no incidents. Advised patient to avoid picking at her nails and skin to avoid any infections. Recommended use of Neosporin and a Band-Aid for mitigation of small abrasions or wounds. Provided patient with form to be sent to her prison pertaining to the treatment received today. Patient is to return to the office in 9 weeks for routine nail care. Orders: Orders AMB Debridement/Avulsion Podiatry Today B35.1 - Tinea unguium, L60.3 - Nail dystrophy Medications: New ciclopirox 8% 1 appl topical BEDTIME 6.6 mL 0RF Onychomycosis 4 weeks B35.1 - Tinea unguium, L60.3 - Nail dystrophy Coding Level of Care Code New Pt Level 3 (48196) Diagnoses Onychomycosis B35.1 Nail dystrophy L60.3 CPT Codes Skin Debridement - CPT: 40603-Bxagldkcidz of Nail 6+ ([id number]) Time Spent (min) 30
[2024-10-21 11:37] VITALS: BMI 32.3
== END 2024-10-21 12:10 | disposition home or self-care (01) ==
LOC: HO.HPODS 11:22
PROVIDERS: PCP Internal Medicine; Visit Provider Student in an Organized Health Care Education/Training Program
DX: L60.3 Nail dystrophy (principal); B35.1 Tinea unguium
CPT/HCPCS: 11721; 99203

== ENCOUNTER → 2024-10-21 | Outpatient (BNVA) | payer MEDICARE, MEDICAID, SELFPAY | PROVIDERS: PCP Internal Medicine; Visit Provider Student in an Organized Health Care Education/Training Program | DX: L60.3 Nail dystrophy (principal); B35.1 Tinea unguium; M79.675 Pain in left toe(s); M79.674 Pain in right toe(s) | CPT/HCPCS: 11721; 99202 ==

== ENCOUNTER 2024-12-23 09:46 | Outpatient (AMB) | payer MEDICARE, MEDICAID, SELFPAY ==
[2024-12-23 10:13] VITALS: BMI 32.3
--- NOTE | 2024-12-23 10:13 | A.OFFVIS_ITS ---
Vital Signs 12/23/24 10:13 Height 5 ft 4 in Weight 188 lb BMI 32.3 Intake Visit Reasons: 9 wk fu Intake Note: Stephy is a 49 year old female who presents today for a follow up on her Tinea unguium. At her last visit her toe nails where debrided and she was prescribed Ciclopirox. Patient reports she had used the medications as prescribed and completed course. She has no questions or concerns at this time. Allergies No Known Allergies Allergy (Verified 12/23/24 10:14) HPI Comments Details: The patient is a 49-year-old female presenting with onychomycosis to the toenails. Patient was accompanied by her staff physician who states they have been applying the ciclopirox to the nails. No adverse reactions have been noticed while using the medication. The patient reports no pain associated with the condition. The discoloration of the nails has slightly improved, although some thickening remains. She denies any other pedal concerns. [facility] Medical History (Updated 12/23/24 @ 16:58 by Patrica Fairchild DPM) Nail disorder Nail dystrophy Anxiety HLD (hyperlipidemia) Seizure disorder Learning disabilities Chronic static encephalopathy Intellectual disability History of anxiety High cholesterol Surgical History History of total hysterectomy Family History Father History of hip replacement Mother Heart attack Sister No problems noted. Social History Household Members Other:: father Housing: House Alcohol intake: never Patient Tobacco Use Status: Never used Tobacco e-Cigarette/Vaping Use: Never Used Current occupational status: disabled Cognitive needs: Yes Hearing needs: No Vision needs: No Review of Systems Const Details: - Dermatological: Reports thickened, discolored, dystrophic toenails x8. The patient has a history of total nail avulsions to bilateral hallucal nails. All systems reviewed & are unremarkable except as noted in HPI and below Physical Exam Vital Signs: BMI result Body Mass Index 32.3 Extrem Other: Bilateral lower extremity focused physical exam: Derm: Thickened, discolored, dystrophic and elongated toenails noted to toes 2 through 5 bilaterally with subungual debris. Noted previous total nail avulsions of bilateral halluces. No open wounds, abrasions, or lesions noted. No clinical signs of infection. Skin supple and turgor WNL. Vascular: DP/PT pulses palpable. Capillary refill time less than 3 seconds. Temperature gradient warm to warm. No edema noted. No varicosities noted. Neuro: Protective sensation is grossly intact. MSK: No pain on palpation to the thickened toenails. Range of motion of the forefoot within normal limits. No crepitus or fluctuance noted. Range of motion of the hindfoot and ankle within normal limits. Hammertoe deformities noted to toes 2 through 5 bilaterally. Office Procedures AMB Debridement/Avulsion Podia Details: Debrided toenails x8 using a sterile nail Nipper without incidents. 98806-Kzvxhdzjgcs of Nail 6+ Procedure code (CPT) selection complete Results Reviewed Results Reviewed: Laboratory Tests 07/03/24 10:20 AST 32 H ALT 13 Assessment & Plan Assessment & Plan (1) Onychomycosis: Code(s): B35.1 - Tinea unguium Category: Medical (2) Nail dystrophy: Code(s): L60.3 - Nail dystrophy Category: Medical (3) Nail disorder: Code(s): L60.9 - Nail disorder, unspecified Category: Medical Plan Patient was informed and verbally consented to the use of an ambient scribe for clinic note documentation during this visit. I discussed with the patient and her caregiver the importance of continuing the application of ciclopirox and the expected timeline for improvement of symptoms. A follow-up appointment was scheduled for nine weeks to assess the treatment's effectiveness. - Refilled ciclopirox. - Continue application of ciclopirox with filing of the nail in between appl ications. - Debrided toenails x8 - Patient is to wear supportive shoe gear and is to avoid barefoot walking. RTC in 9 weeks. Orders: Orders AMB Debridement/Avulsion Podiatry Today B35.1 - Tinea unguium, L60.3 - Nail dystrophy, L60.9 - Nail disorder, unspecified Medications: Refilled ciclopirox 8% 1 appl topical BEDTIME 6.6 mL 0RF Onychomycosis 4 weeks B35.1 - Tinea unguium, L60.3 - Nail dystrophy Coding Level of Care Code Est Pt Level 3 (69646) Diagnoses Onychomycosis B35.1 Nail dystrophy L60.3 Nail disorder L60.9 CPT Codes Skin Debridement - CPT: 21320-Iqehlzdpuqn of Nail 6+ ([id number]) Time Spent (min) 25 Comment 5 mins for procedure
== END 2024-12-23 10:42 | disposition home or self-care (01) ==
LOC: HO.HPODS 09:47
PROVIDERS: PCP Internal Medicine; Visit Provider Student in an Organized Health Care Education/Training Program
DX: B35.1 Tinea unguium (principal); L60.3 Nail dystrophy; L60.9 Nail disorder, unspecified
CPT/HCPCS: 11721; 99213

== ENCOUNTER → 2024-12-23 09:46 | Outpatient (BNVA) | payer MEDICARE, MEDICAID, SELFPAY | PROVIDERS: PCP Internal Medicine; Visit Provider Student in an Organized Health Care Education/Training Program | DX: B35.1 Tinea unguium (principal); L60.3 Nail dystrophy; L60.9 Nail disorder, unspecified | CPT/HCPCS: 11721; 99212 ==

== ENCOUNTER 2025-01-22 09:59 | Outpatient (REF) | payer MEDICARE, MEDICAID, SELFPAY ==
[2025-01-22 14:30] LABS: MANUAL DIFF FLAG NO
[2025-01-22 14:40] LABS: Hematocrit 38.8 % (37.0-47.0); Hemoglobin 12.6 g/dl (12.0-16.0); Imm Gran Abs Auto 0.01 X10*3/uL (0.00-0.03); Imm Gran Pct Auto 0.2 % (0.0-0.4); Lymphocytes Absolute Auto 1.4 X10*3/uL (1.2-4.9); Mean Corpuscular HGB Conc 32.5 g/dl (31.0-35.0); Mean Corpuscular Hemoglobin 33.9 pg (27.0-33.0); Mean Corpuscular Volume 104.3 fL (80.0-98.0); NRBC Abs Auto 0.000 X10*3/uL (0.0-0.012); NRBC Pct Auto 0.0 /100WBC (0.0-0.2); Platelet Count 156 X10*3/uL (160-400); Red Blood Count 3.72 X10*6/uL (4.20-5.50); White Blood Count 4.1 X10*3/uL (4.8-10.8)
[2025-01-22 15:46] LABS: Alanine Aminotransferase 18 U/L (0-31); Albumin Level 4.2 g/dL (3.5-5.0); Alkaline Phosphatase 72 U/L (39-117); Anion Gap 11 (12-20); Aspartate Amino Transferase 30 U/L (5-31); Blood Urea Nitrogen 23 mg/dL (9-16); Calcium 8.8 mg/dL (8.4-10.2); Carbon Dioxide 28 mmol/L (22-29); Chloride 105 mmol/L (96-108); Estimated Glomerular Filt Rate > 60; Potassium 4.0 mmol/L (3.3-5.1); Sodium 140 mmol/L (135-145); Total Protein 6.8 g/dL (6.5-8.0)
[2025-01-22 16:04] LABS: Ferritin 33 ng/mL (10-250)
== END 2025-01-22 10:00 | disposition home or self-care (01) ==
LOC: HO.HMGCLDS 09:59
PROVIDERS: PCP Internal Medicine; Visit Provider Internal Medicine
DX: Z00.01 Encounter for general adult medical examination with abnormal findings (principal); Z23 Encounter for immunization; E66.09 Other obesity due to excess calories; E78.9 Disorder of lipoprotein metabolism, unspecified; D63.8 Anemia in other chronic diseases classified elsewhere; F79 Unspecified intellectual disabilities; Z68.29 Body mass index [BMI] 29.0-29.9, adult
CPT/HCPCS: 36415; 80053; 82728; 83721; 85025; 90471; 90656; 99212

== ENCOUNTER 2025-01-22 09:59 | Outpatient (AMB) | payer MEDICARE, MEDICAID, SELFPAY ==
[2025-01-22 10:05] VITALS: BMI 29.7
--- NOTE | 2025-01-22 10:05 | A.OFFPC_ITS ---
Vital Signs 01/22/25 10:05 Height 5 ft 4 in Weight 173 lb BMI 29.7 Intake Visit Reasons: 6 months f/up Allergies No Known Allergies Allergy (Verified 01/22/25 10:05) Medication List - Last Reconciled 01/22/25 by Paige Gonsalez MD acetaminophen (Tylenol) 325 mg PO ONCE PRN 30 days carbamazepine mg PO ciclopirox 8% 1 appl topical BEDTIME 4 weeks escitalopram oxalate 20 mg PO DAILY lorazepam 0.5 mg PO TID PRN quetiapine mg PO quetiapine 100 mg PO BEDTIME quetiapine 200 mg PO BEDTIME sennosides-docusate sodium 8.6-50 mg (Senokot-S) 1 tab-cap PO BEDTIME 90 days simvastatin 20 mg PO BEDTIME Tobacco use date assessed: 02/21/24 Dental Screening Dental Screen Date: 02/21/24 HPI HPI Comments History of Present Illness Details History of Present Illness The patient is a 49 year old female presenting for a six-month follow-up for hyperlipidemia. Hyperlipidemia: - The patient has a history of high chol esterol and attends follow-up appointments every six months. - She reports taking her cholesterol med ication every morning. Anemia: - Laboratory tests from June indicated sl ight anemia. Menopause: - The patient reports that her menstrual periods have stopped. [facility] Medical History Nail disorder Nail dystrophy Anxiety HLD (hyperlipidemia) Seizure disorder Learning disabilities Chronic static encephalopathy Intellectual disability History of anxiety High cholesterol Surgical History History of total hysterectomy Family History Father History of hip replacement Mother Heart attack Sister No problems noted. Social History Household Members Other:: father Housing: House Alcohol intake: never Patient Tobacco Use Status: Never used Tobacco e-Cigarette/Vaping Use: Never Used Current occupational status: disabled Cognitive needs: Yes Hearing needs: No Vision needs: No Questionnaire Thrive Questionnaire Date Thrive assessed: 02/21/24 I am a: Patient What is your living situation today?: I have a place to live, but I am worried about losing it in the future Within the past 12 months, did the food you bought not last and you didn't have the money to get more?: I choose not to answer this question Within the past 12 months, did you worry whether your food would run out before you got money to buy more?: I choose not to answer this question Do you have trouble paying for medicines?: No Do you have trouble getting transportation to medical appointments?: No Do you have trouble paying your heating and electricity bill?: No Do you have trouble taking care of your child, family member or friend?: No Do you have trouble with day-to-day activities such as bathing, preparing meals, shopping, managing finances, etc.?: No Are you currently unemployed and looking for a job?: No Are you interested in more education?: No Please select the resources that you would like help with: None Currently or been in a relationship where the following occur: No concerns reported THRIVE Score: 1 MARIANNE-7 AMB Questionnaire MARIANNE-7 Date MARIANNE - 7 assessed: 02/21/24 Source: Developed by Drs. Yusef Hoffmann, Darby Hernandez, Robin Gandhi and colleagues, with an educational sukumar from [employer]. Review of Systems Narrative Review of Systems - General: No fever no chills - Neurological: No headaches no dizziness - Ear nose throat: No sore throat no hearing difficulty no ear pain - Cardiovascular: No syncope, no chest pain, no palpitations - Gastrointestinal: No nausea vomiting or diarrhea Physical exam (Primary Care) BMI result Body Mass Index 29.7 Tobacco/Smoking Status: Tobacco use Status Tobacco use date assessed 02/21/24 01/22/25 10:06 Patient Tobacco Use Status Never used Tobacco 01/22/25 10:06 e-Cigarette/Vaping Use Never Used 01/22/25 10:06 Thrive Assessment: Date of Thrive Assessment Date Thrive assessed 02/21/24 01/22/25 10:06 Currently or been in a relationship where the following occur: No concerns re ported Narrative Physical Exam General: No acute distress HEENT: No acute findings Neck: Supple Respiratory system: Able to talk in full sentences, no audible wheeze Gastrointestinal: No pain, no nausea, vomiting, or abdominal pain Extremities: No new findings 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: Alert awake oriented x3 motor intact Skin: Normal turgor Office Procedures Flu Questionnaire Does the patient have a severe egg allergy?: No Does the patient have severe life threatening allergies?: No Does the patient have a fever or illness today?: No Has the patient ever had Guillain-[place] Syndrome?: No Has the patient ever had any past reaction to a flu shot?: No Immunizations Fluarix [id number] (PF) 45 mcg (15 mcg x 3)/0.5 mL IM syringe Performing Provider: Paige Gonsalez MD Performing Location: [facility] Administered by: Jarek Gallagher CMA on 01/22/25 10:22 Dose Route Admin Location Dispensed Lot Number Expiration Date [facility] Sales[employer] Specialist 0.5 mL IM Left Deltoid 0.5 mL [id number] 08/05/25 [id number] [employer] VIS Given Date VIS Provided VIS Publication Date 01/22/25 Single Vaccine 24 Eligibility Eligibility Date Funding Source Not [facility] Eligible 01/22/25 Private Coding Level of Care Code Est Pt Level 3 (20384) Diagnoses Anemia in other chronic diseases classified elsewhere D63.8 Anemia type: other cause Other causes of anemia: chronic disease, other Lipid disorder E78.9 Intellectual disability F79 Assessment & Plan Assessment & Plan (1) Anemia: Code(s): D64.9 - Anemia, unspecified Category: Medical Qualifiers: Anemia type: other cause Other causes of anemia: chronic disease, other Qualified Code(s): D63.8 - Anemia in other chronic diseases classified elsewhere (2) Lipid disorder: Code(s): E78.9 - Disorder of lipoprotein metabolism, unspecified Category: Medical (3) Intellectual disability: Code(s): F79 - Unspecified intellectual disabilities Category: Medical Plan Problem List - Hyperlipidemia - Anemia - Menopause - Preventative care: Influenza vaccination Plan - Administer influenza vaccine in the office today. - Proceed for blood tests today. - Continue taking cholesterol medication as prescribed. - Follow-up in six months. Orders: Orders Influenza [id number] Immunization Today Z23 - Encounter for immunization Medications: Refilled simvastatin 20 mg PO BEDTIME 90 tabs 1RF high cholesterol
== END 2025-01-22 10:37 | disposition home or self-care (01) ==
LOC: HO.HMCC 10:00
PROVIDERS: PCP Internal Medicine; Visit Provider Internal Medicine
DX: E78.9 Disorder of lipoprotein metabolism, unspecified (principal); D63.8 Anemia in other chronic diseases classified elsewhere; F79 Unspecified intellectual disabilities; Z23 Encounter for immunization